=== PATIENT | male | born 1955 | race Caucasian/White ===

== ENCOUNTER 2022-06-09 12:03 | Emergency (ER) | payer MEDICARE, MEDICAID, SELFPAY ==
--- NOTE | 2022-06-09 | ECG_ITS ---
Test Reason : CHEST PAIN Blood Pressure : / mmHG Vent. Rate : 050 BPM Atrial Rate : 050 BPM P-R Int : 176 ms QRS Dur : 094 ms QT Int : 462 ms P-R-T Axes : 069 051 044 degrees QTc Int : 421 ms Sinus bradycardia Otherwise normal ECG No previous ECGs available Referred By: Sabrina Boswell Electronically Signed By:WALLY MCFADDEN
--- NOTE | ~2022-06-09 | XR_ITS ---
EXAMINATION: XR CHEST CLINICAL INFORMATION: Chest pain. COMPARISON: None TECHNIQUE: Frontal view of the chest was obtained. FINDINGS: No significant abnormality is noted involving the heart, lungs, mediastinum, bony thorax or soft tissues. XR/XR chest 1V IMPRESSION: No acute cardiopulmonary process.
[2022-06-09 12:19] VITALS: BMI 25.8
--- NOTE | 2022-06-09 12:19 | ED.CHESTPAIN ---
HPI - Chest Pain General Chief Complaint: Chest Pain Stated Complaint: CHEST PAIN, L. ARM NUMBNESS Time Seen by Provider: 06/09/22 12:15 Source: patient Mode of arrival: EMS Limitations: no limitations History of Present Illness HPI narrative: 66 yo male with hx of COPD, HTN was watching TV around 1030am and developed sternal chest pressure radiating down left arm no associated dyspnea/nausea. It resolved after 5 minutes. He took aspirin with EMS. He notes he feels fine now and is hungry. MD complaint: chest pain Onset (ago): hour(s) (1030am) Timing of current episode: now resolved Prior episodes: No Onset: during rest Pain location: substernal Pain radiation: left arm Severity: moderate Quality: heaviness Relieving factors: nothing Exacerbating factors: nothing Treatment prior to arrival: aspirin Related Data Allergies Allergy/AdvReac Type Severity Reaction Status Date / Time No Known Allergies Allergy Unverified 06/09/22 12:42 [No Known Allergies*] Review of Systems Review of Systems: Constitutional : No Weight loss, No Fever, No Chills ENT/Mouth : No sore throat, No Rhinorrhea Eyes: No Eye Pain, No Swelling Cardiovascular : pos Chest Pain, no SOB, no Dyspnea on Exertion, No Orthopnea, No Edema, No Palpitations Respiratory : No Cough, No Sputum Gastrointestinal : no Nausea, No Vomiting, No Diarrhea, No abdominal Pain, No Hematochezia, No Melena Genitourinary : No Dysuria, No Urinary Frequency Musculoskeletal : No joint pain, No Myalgias, No Joint Swelling Skin : No Skin Lesions, No rash Neuro : No Weakness, No Numbness, No Dizziness, No Headache Psych : No Anxiety/Panic, No Depression Heme/Lymph: No Bruising, No Lymphadenopathy Endocrine : No Polyuria, No Polydipsia All other systems reviewed and are negative [facility] Past Medical History Attestation statement: The following information was validated with the patient. Medical History COPD (chronic obstructive pulmonary disease) HTN (hypertension) Social History Social History (Updated 06/09/22 @ 12:40 by Sabrina Boswell DO) Patient Tobacco Use Status: Current everyday Tobacco user Advance Directives: No Advance Directives Information Provided: No Physical Exam Vital Signs: Vital Signs: Last Vital Signs Temp 97.7 F 06/09/22 12:39 Pulse 61 06/09/22 14:38 Resp 12 06/09/22 14:38 BP 113/70 06/09/22 14:38 Pulse Ox 96 06/09/22 14:38 O2 Del Method 06/09/22 14:38 BMI result Body Mass Index 23.6 Appearance: Alert. Oriented X3. No acute distress. Eyes: Pupils equal, round and reactive to light. ENT: Pharynx normal. Neck: Normal inspection. Neck supple. CVS: Normal heart rate and rhythm. Pulses normal. Respiratory: No respiratory distress. Breath sounds normal. Abdomen: Soft and nontender. Skin: Skin warm and dry. Normal skin color. Normal skin turgor. Extremities: No lower extremity edema. No calf ttp Neuro: Oriented X 3. No motor deficit. No sensory deficit. Course Course Course Narrative: no return of pain while in ED repeat trop negative VS stable can be DC with outpatient follow up MDM - Chest Pain MDM Narrative Medical decision making narrative: 66 yo male with hx of COPD and HTN was watching TV when he developed chest heaviness he had no associated symptoms it resolved after 5 minutes. He feels fine now and is asking for food. At this time will obtain labs, EKG troponin x 2. He has no signs of DVT, hypoxia, he had no pleuritic component or dyspnea to suggest PE. Dispo per results and findings. Lab Data Result diagrams: 06/09/22 13:07 06/09/22 13:07 Labs: Lab Results 06/09/22 06/09/22 06/09/22 Range/Units 13:07 13:07 13:07 WBC 6.2 (4.8-10.8) X10*3/uL RBC 4.51 L (4.60-5.80) X10*6/uL Hgb 13.8 L (14.0-18.0) g/dl Hct 40.8 L (42.0-52.0) % MCV 90.5 (80.0-98.0) fL MCH 30.6 (27.0-33.0) pg MCHC 33.8 (31.0-36.0) g/dl RDW 13.8 (11.0-16.0) % Plt Count 223 (160-400) X10*3/uL MPV 8.2 L (9.4-12.4) fL Immature Gran % (Auto) 0.2 (0.0-0.4) % Neut % (Auto) 55.9 (45-73) % Lymph % (Auto) 27.9 (20-40) % [place] % (Auto) 9.4 (2-11) % Eos % (Auto) 6.0 H (0-4) % Baso % (Auto) 0.6 (0-2) % Lymph # (Auto) 1.7 (1.2-4.9) X10*3/uL [place] # (Auto) 0.6 (0.1-1.2) X10*3/uL Eos # (Auto) 0.4 (0.0-0.4) X10*3/uL Baso # (Auto) 0.0 (0.0-0.2) X10*3/uL Abs Immat Gran (auto) 0.01 (0.00-0.03) X10*3/uL Absolute Neuts (auto) 3.4 (2.0-8.3) x10*3/uL Absolute Nucleated RBC 0.000 (0.0-0.012) X10*3/uL Nucleated RBC % (auto) 0.0 (0.0-0.2) /100WBC PT 12.7 (10.0-13.1) SEC INR 1.1 (0.9-1.1) Sodium 140 (135-145) mmol/L Potassium 4.3 (3.3-5.1) mmol/L Chloride 104 (96-108) mmol/L Carbon Dioxide 27 (22-29) mmol/L Anion Gap 13 (12-20) BUN 23 H (9-16) mg/dL Creatinine 0.89 (0.5-1.4) mg/dL Estim Creat Clear Calc 81.6 Estimated GFR > 60 Random Glucose 89 (60-115) mg/dL Calcium 8.9 (8.4-10.2) mg/dL Magnesium 2.3 (1.6-2.6) mg/dL Total Bilirubin 0.4 (0.0-1.0) mg/dL Direct Bilirubin 0.2 (0.0-0.5) mg/dL AST 19 (5-37) U/L ALT 14 (0-40) U/L Alkaline Phosphatase 77 (39-117) U/L Troponin I High Sens (<3.5-35.0) ng/L Total Protein 7.5 (6.5-8.0) g/dL Albumin 3.9 (3.5-5.0) g/dL Lipase 20 (8-78) U/L COVID-19 ([place]) (Negative) COVID-19 Clin Com 06/09/22 06/09/22 Range/Units 13:07 13:07 WBC (4.8-10.8) X10*3/uL RBC (4.60-5.80) X10*6/uL Hgb (14.0-18.0) g/dl Hct (42.0-52.0) % MCV (80.0-98.0) fL MCH (27.0-33.0) pg MCHC (31.0-36.0) g/dl RDW (11.0-16.0) % Plt Count (160-400) X10*3/uL MPV (9.4-12.4) fL Immature Gran % (Auto) (0.0-0.4) % Neut % (Auto) (45-73) % Lymph % (Auto) (20-40) % [place] % (Auto) (2-11) % Eos % (Auto) (0-4) % Baso % (Auto) (0-2) % Lymph # (Auto) (1.2-4.9) X10*3/uL [place] # (Auto) (0.1-1.2) X10*3/uL Eos # (Auto) (0.0-0.4) X10*3/uL Baso # (Auto) (0.0-0.2) X10*3/uL Abs Immat Gran (auto) (0.00-0.03) X10*3/uL Absolute Neuts (auto) (2.0-8.3) x10*3/uL Absolute Nucleated RBC (0.0-0.012) X10*3/uL Nucleated RBC % (auto) (0.0-0.2) /100WBC PT (10.0-13.1) SEC INR (0.9-1.1) Sodium (135-145) mmol/L Potassium (3.3-5.1) mmol/L Chloride (96-108) mmol/L Carbon Dioxide (22-29) mmol/L Anion Gap (12-20) BUN (9-16) mg/dL Creatinine (0.5-1.4) mg/dL Estim Creat Clear Calc Estimated GFR Random Glucose (60-115) mg/dL Calcium (8.4-10.2) mg/dL Magnesium (1.6-2.6) mg/dL Total Bilirubin (0.0-1.0) mg/dL Direct Bilirubin (0.0-0.5) mg/dL AST (5-37) U/L ALT (0-40) U/L Alkaline Phosphatase (39-117) U/L Troponin I High Sens < 3.5 (<3.5-35.0) ng/L Total Protein (6.5-8.0) g/dL Albumin (3.5-5.0) g/dL Lipase (8-78) U/L COVID-19 (AL) Negative (Negative) COVID-19 Clin Com See Note ECG Data ECG #1: Attestation: I personally reviewed and interpreted this ECG as follows: ECG interpretation date: 06/09/22 ECG interpretation time: 12:29 Interpretation: Rate: 50 Rhythm: sinus bradycardia [place]: normal Normal P waves. Normal PURVI. Normal QRS complex. ST T wave : normal no JONATAN qtc: normal prior studies: no acute ischemia The study has been interpreted contemporaneously by me. . Scores Heart Score History: -0- slightly suspicious ECG: -0- normal Age: -2- > or = 65 Risk factory: -1- 1 or 2 risk factors Troponin: -0- < or = normal limit Score: 3 Risk: 1.7% Discharge Plan Discharge Clinical Impression: Chest pain Patient Disposition: Home, Self-Care Instructions: Chest Pain (ED) Additional Instructions: return to ED for any worsening symptoms or concerns please follow up with your primary care providers you will need an outpatient stress test take a baby aspirin daily Referrals: Neftaly Gutierres MD [Primary Care Provider] - 06/11/22
[2022-06-09 12:28] VITALS: BP 118/68; PULSE 53; RESP 12; TEMP 36.5; O2SAT 96
[2022-06-09 12:39] VITALS: BP 107/88; BP 115/62; PULSE 62; PULSE 75; RESP 14; TEMP 36.5; O2SAT 99; BMI 23.6
[2022-06-09 12:53] VITALS: PULSE 73
[2022-06-09 13:15] LABS: MANUAL DIFF FLAG NO
[2022-06-09 13:17] LABS: Basophils Percent Auto 0.6 % (0-2); Eosinophils Absolute Auto 0.4 X10*3/uL (0.0-0.4); Hematocrit 40.8 % (42.0-52.0); Hemoglobin 13.8 g/dl (14.0-18.0); Imm Gran Abs Auto 0.01 X10*3/uL (0.00-0.03); Imm Gran Pct Auto 0.2 % (0.0-0.4); Lymphocytes Absolute Auto 1.7 X10*3/uL (1.2-4.9); Lymphocytes Percent Auto 27.9 % (20-40); Mean Corpuscular HGB Conc 33.8 g/dl (31.0-36.0); Mean Corpuscular Hemoglobin 30.6 pg (27.0-33.0); Mean Corpuscular Volume 90.5 fL (80.0-98.0); Mean Platelet Volume 8.2 fL (9.4-12.4); Monocytes Absolute Auto 0.6 X10*3/uL (0.1-1.2); Monocytes Percent Auto 9.4 % (2-11); Neutrophils Absolute Auto 3.4 x10*3/uL (2.0-8.3); Neutrophils Percent Auto 55.9 % (45-73); Platelet Count 223 X10*3/uL (160-400); Red Blood Count 4.51 X10*6/uL (4.60-5.80); Red Cell Distribution Width 13.8 % (11.0-16.0); White Blood Count 6.2 X10*3/uL (4.8-10.8)
[2022-06-09 13:23] LABS: INTERNATIONAL NORM RATIO 1.1 (0.9-1.1); Prothrombin Time 12.7 SEC (10.0-13.1)
[2022-06-09 13:32] LABS: COVID-19 Test Negative (Negative); IDNOW Serial# 16C4AD1C
[2022-06-09 13:33] LABS: Alanine Aminotransferase 14 U/L (0-40); Albumin Level 3.9 g/dL (3.5-5.0); Alkaline Phosphatase 77 U/L (39-117); Anion Gap 13 (12-20); Aspartate Amino Transferase 19 U/L (5-37); Bilirubin Direct 0.2 mg/dL (0.0-0.5); Bilirubin Total 0.4 mg/dL (0.0-1.0); Blood Urea Nitrogen 23 mg/dL (9-16); Calcium 8.9 mg/dL (8.4-10.2); Carbon Dioxide 27 mmol/L (22-29); Chloride 104 mmol/L (96-108); Creatinine Clr Calc Pharmacy 81.6; Estimated Glomerular Filt Rate > 60; Glucose Random 89 mg/dL (60-115); Lipase 20 U/L (8-78); Magnesium 2.3 mg/dL (1.6-2.6); Potassium 4.3 mmol/L (3.3-5.1); Sodium 140 mmol/L (135-145); Total Protein 7.5 g/dL (6.5-8.0)
[2022-06-09 13:40] LABS: Troponin-I High Sensitivity < 3.5 ng/L (<3.5-35.0)
[2022-06-09 14:38] VITALS: BP 113/70; PULSE 61; RESP 12; O2SAT 96
--- NOTE | 2022-06-09 14:38 | PC.NURSE ---
pt continues to deny cp, sob, pt in nad, well appearing. awaiting second troponin. nsr on monitor.
[2022-06-09 16:00] LABS: Troponin-I High Sensitivity < 3.5 ng/L (<3.5-35.0)
== END 2022-06-09 16:49 | disposition home or self-care (01) ==
PROVIDERS: Emergency Provider Emergency Medicine; PCP Internal Medicine
DX: R07.89 Other chest pain (principal); R20.0 Anesthesia of skin; F17.200 Nicotine dependence, unspecified, uncomplicated; Z71.6 Tobacco abuse counseling; Z20.822 Contact with and (suspected) exposure to COVID-19; Z79.899 Other long term (current) drug therapy
CPT/HCPCS: 36415; 71045; 80048; 80076; 83690; 83735; 84484; 85025; 85610; 87635; 93005; 99284

== ENCOUNTER 2022-12-21 22:31 | Emergency (ER) | payer MEDICARE, MEDICAID, SELFPAY ==
--- NOTE | 2022-12-21 | ECG_ITS ---
Test Reason : CHEST PAIN Blood Pressure : / mmHG Vent. Rate : 062 BPM Atrial Rate : 062 BPM P-R Int : 168 ms QRS Dur : 092 ms QT Int : 424 ms P-R-T Axes : 063 022 032 degrees QTc Int : 430 ms Normal sinus rhythm Normal ECG When compared with ECG of 09-JUN-2022 12:11, No significant change was found Referred By: Generic ED Physician Electronically Signed By:Lucas Amaya
--- NOTE | ~2022-12-21 | XR_ITS ---
EXAMINATION: XR CHEST CLINICAL INFORMATION: Chest pain COMPARISON: Chest x-ray 06/09/2022 TECHNIQUE: 2 views of the chest were obtained. FINDINGS: No significant abnormality is noted involving the heart, lungs, mediastinum, bony thorax or soft tissues. XR/XR chest 2V IMPRESSION: Unremarkable examination.
[2022-12-21 22:36] VITALS: BP 104/73; BP 130/70; PULSE 67; PULSE 68; RESP 14; TEMP 37; O2SAT 95; O2SAT 97; BMI 25.8
--- NOTE | 2022-12-21 22:55 | ED_ITS ---
HPI - Chest Pain General Chief Complaint: Chest Pain Stated Complaint: chest pain Time Seen by Provider: 12/21/22 22:42 Source: patient, RN notes reviewed and old records reviewed Mode of arrival: ambulatory Limitations: no limitations History of Present Illness HPI narrative: The a 67-year-old male past medical history significant for autism spectrum disorder, diabetes, tobacco dependence bipolar disorder presents for evaluation of chest pain. Patient reports about an hour prior to arrival he was playing solitaire any had a sudden onset of chest pain. He states that chest pain was ?intense, 8/10. ? It did not radiate. He states that was in the center of his chest The pain lasted approximately 15 minutes before completely resolving. Currently the patient has no complaints. He states he had no shortness of breath, palpitations, cough when lightheadedness during his chest pain. He denies any known history of cardiac disease Denies any leg swelling or recent travel Patient received aspirin 324 mg prior to arrival Related Data Allergies Allergy/AdvReac Type Severity Reaction Status Date / Time No Known Allergies Allergy Unverified 06/09/22 12:42 [No Known Allergies*] Review of Systems Constitutional: Constitutional: Reports as per HPI, Denies chills, Denies fatigue, Denies fever(s) and Denies headache(s) ENT: Denies headache(s) Cardiovascular: Cardiovascular: Reports chest pain, Reports chest pain at rest (That has since resolved) and Denies dyspnea Respiratory: Respiratory: Denies cough and Denies dyspnea Gastrointestinal: Gastrointestinal: Denies abdominal pain, Denies constipation and Denies vomiting Genitourinary: Genitourinary: Denies difficulty urinating and Denies dysuria Neurologic: Denies headache(s) and Denies focal weakness Endocrine: Endocrine: Denies fatigue [facility] Past Medical History Medical History COPD (chronic obstructive pulmonary disease) HTN (hypertension) Social History Social History Alcohol intake: never Patient Tobacco Use Status: Current everyday Tobacco user Smoked in Last 30 Days: Yes Use of substances other than those prescribed or required for medical reasons: No Advance Directives: No Physical Exam Vital Signs: Vital Signs: Last Vital Signs Temp 98.6 F 12/21/22 22:36 Pulse 52 12/22/22 00:16 Resp 15 12/22/22 00:16 BP 129/72 12/22/22 00:16 Pulse Ox 96 12/22/22 00:16 O2 Del Method 12/22/22 00:16 BMI result Body Mass Index 25.8 Const: General: healthy appearing, comfortable, no acute distress, alert and awake Nutritional Appearance: well nourished Orientation/consciousness: patient oriented x3 HEENT: Head: Yes normocephalic and Yes atraumatic Throat: Yes posterior oropharynx normal Eyes: Eyelids: Yes eyelids normal Conjunctivae: conjunctivae normal Sclerae: sclerae normal Corneas: corneas normal Pupils: Equal, round and reactive pupils present EOM: EOMs intact bilaterally Neck: Neck: Yes full ROM Resp: Effort & Inspection: normal respiratory effort, able to speak in complete sentences, no audible wheezes and not labored Auscultation: clear to auscultation bilaterally Cardio: Rate: regular rate Rhythm: regular rhythm GI: Inspection: No distended Palpation (GI): Soft to palpation, not firm, nontender, no guarding and not rigid Auscultation: normoactive bowel sounds Skin: General skin exam: no rashes or lesions noted and elasticity normal Neuro: General: patient oriented x3 Cranial nerves: Yes CN's II-XII intact bilaterally, Yes Equal, round and reactive pupils present and Yes Bilaterally intact EOM present Cognition (Neuro): normal cognition Course Reevaluation(s) Reevaluation #1: Patient's initial labs unremarkable, he remains chest pain-free, repeat troponin pending Time: 02:02 Medical Decision Making Medical Decision Making [facility] Narrative: 67-year-old male presents for evaluation of chest. His chest pain lasted approximately 15 minutes episode while he was at rest. His pain is currently 0/10. Patient was given aspirin 324 \mg prior to arrival. He denies any known history of cardiac disease or family history of cardiac disease. The patient's risk factors include a a tobacco dependence and diabetes. No risk factors for DVT. He will get labs, EKG is nonischemic. Chest x-ray pending. Differential Diagnosis Chest pain Atypical chest pain Pleurisy Costochondritis Chest wall pain GERD PE less likely Lab Data [facility] Lab Attestation statement: I reviewed the patient's lab results. 12/21/22 22:54 12/21/22 22:54 Labs: Lab Results 12/21/22 12/21/22 12/21/22 Range/Units 22:54 22:54 22:54 WBC 6.5 (4.8-10.8) X10*3/uL RBC 4.47 L (4.60-5.80) X10*6/uL Hgb 13.5 L (14.0-18.0) g/dl Hct 40.3 L (42.0-52.0) % MCV 90.2 (80.0-98.0) fL MCH 30.2 (27.0-33.0) pg MCHC 33.5 (31.0-36.0) g/dl RDW 14.0 (11.0-16.0) % Plt Count 224 (160-400) X10*3/uL MPV 8.4 L (9.4-12.4) fL Immature Gran % (Auto) 0.2 (0.0-0.4) % Neut % (Auto) 47.1 (45-73) % Lymph % (Auto) 35.0 (20-40) % [place] % (Auto) 9.8 (2-11) % Eos % (Auto) 7.0 H (0-4) % Baso % (Auto) 0.9 (0-2) % Lymph # (Auto) 2.3 (1.2-4.9) X10*3/uL [place] # (Auto) 0.6 (0.1-1.2) X10*3/uL Eos # (Auto) 0.5 H (0.0-0.4) X10*3/uL Baso # (Auto) 0.1 (0.0-0.2) X10*3/uL Abs Immat Gran (auto) 0.01 (0.00-0.03) X10*3/uL Absolute Neuts (auto) 3.1 (2.0-8.3) x10*3/uL Absolute Nucleated RBC 0.000 (0.0-0.012) X10*3/uL Nucleated RBC % (auto) 0.0 (0.0-0.2) /100WBC PT 11.9 (10.0-13.1) SEC INR 1.0 (0.9-1.1) APTT 26.7 (26.0-36.4) SEC Sodium 142 (135-145) mmol/L Potassium 4.1 (3.3-5.1) mmol/L Chloride 109 H (96-108) mmol/L Carbon Dioxide 25 (22-29) mmol/L Anion Gap 12 (12-20) BUN 27 H (9-16) mg/dL Creatinine 0.85 (0.5-1.4) mg/dL Estim Creat Clear Calc 81.5 Estimated GFR > 60 Random Glucose 87 (60-115) mg/dL Calcium 8.5 (8.4-10.2) mg/dL Phosphorus 2.8 (2.7-4.5) mg/dL Magnesium 2.4 (1.6-2.6) mg/dL Total Bilirubin 0.4 (0.0-1.0) mg/dL AST 23 (5-37) U/L ALT 20 (0-40) U/L Alkaline Phosphatase 69 (39-117) U/L Troponin I High Sens (<3.5-35.0) ng/L B-Natriuretic Peptide (<100) pg/mL Total Protein 7.1 (6.5-8.0) g/dL Albumin 3.8 (3.5-5.0) g/dL Lipase 20 (8-78) U/L 12/21/22 12/21/22 12/22/22 Range/Units 22:54 22:54 01:46 WBC (4.8-10.8) X10*3/uL RBC (4.60-5.80) X10*6/uL Hgb (14.0-18.0) g/dl Hct (42.0-52.0) % MCV (80.0-98.0) fL MCH (27.0-33.0) pg MCHC (31.0-36.0) g/dl RDW (11.0-16.0) % Plt Count (160-400) X10*3/uL MPV (9.4-12.4) fL Immature Gran % (Auto) (0.0-0.4) % Neut % (Auto) (45-73) % Lymph % (Auto) (20-40) % [place] % (Auto) (2-11) % Eos % (Auto) (0-4) % Baso % (Auto) (0-2) % Lymph # (Auto) (1.2-4.9) X10*3/uL [place] # (Auto) (0.1-1.2) X10*3/uL Eos # (Auto) (0.0-0.4) X10*3/uL Baso # (Auto) (0.0-0.2) X10*3/uL Abs Immat Gran (auto) (0.00-0.03) X10*3/uL Absolute Neuts (auto) (2.0-8.3) x10*3/uL Absolute Nucleated RBC (0.0-0.012) X10*3/uL Nucleated RBC % (auto) (0.0-0.2) /100WBC PT (10.0-13.1) SEC INR (0.9-1.1) APTT (26.0-36.4) SEC Sodium (135-145) mmol/L Potassium (3.3-5.1) mmol/L Chloride (96-108) mmol/L Carbon Dioxide (22-29) mmol/L Anion Gap (12-20) BUN (9-16) mg/dL Creatinine (0.5-1.4) mg/dL Estim Creat Clear Calc Estimated GFR Random Glucose (60-115) mg/dL Calcium (8.4-10.2) mg/dL Phosphorus (2.7-4.5) mg/dL Magnesium (1.6-2.6) mg/dL Total Bilirubin (0.0-1.0) mg/dL AST (5-37) U/L ALT (0-40) U/L Alkaline Phosphatase (39-117) U/L Troponin I High Sens < 3.5 < 3.5 (<3.5-35.0) ng/L B-Natriuretic Peptide 16 (<100) pg/mL Total Protein (6.5-8.0) g/dL Albumin (3.5-5.0) g/dL Lipase (8-78) U/L Independent Interpretation I performed an independent interpretation of an: EKG (Sinus rhythm with a rate of 62 beats per minute. No ST segment changes. No ectopy or arrhythmia) Radiology Impression Discussion of test interpretation with radiology: I have reviewed the radiologist's reading. Radiologist Impression: No acute pathology Discharge Plan Discharge Clinical Impression: Chest pain Patient Disposition: Home, Self-Care Instructions: Chest Pain (ED) Additional Instructions: Your workup in the emergency department was reassuring. This includes your blood work, EKG and chest x-ray Use ibuprofen or Tylenol for any further discomfort Follow-up with your primary doctor
[2022-12-21 23:09] LABS: MANUAL DIFF FLAG NO
[2022-12-21 23:16] LABS: Basophils Absolute Auto 0.1 X10*3/uL (0.0-0.2); Basophils Percent Auto 0.9 % (0-2); Eosinophils Absolute Auto 0.5 X10*3/uL (0.0-0.4); Hematocrit 40.3 % (42.0-52.0); Hemoglobin 13.5 g/dl (14.0-18.0); Imm Gran Abs Auto 0.01 X10*3/uL (0.00-0.03); Imm Gran Pct Auto 0.2 % (0.0-0.4); Lymphocytes Absolute Auto 2.3 X10*3/uL (1.2-4.9); Mean Corpuscular HGB Conc 33.5 g/dl (31.0-36.0); Mean Corpuscular Hemoglobin 30.2 pg (27.0-33.0); Mean Corpuscular Volume 90.2 fL (80.0-98.0); Mean Platelet Volume 8.4 fL (9.4-12.4); Monocytes Absolute Auto 0.6 X10*3/uL (0.1-1.2); Monocytes Percent Auto 9.8 % (2-11); Neutrophils Absolute Auto 3.1 x10*3/uL (2.0-8.3); Neutrophils Percent Auto 47.1 % (45-73); Platelet Count 224 X10*3/uL (160-400); Red Blood Count 4.47 X10*6/uL (4.60-5.80); White Blood Count 6.5 X10*3/uL (4.8-10.8)
[2022-12-21 23:25] LABS: Prothrombin Time 11.9 SEC (10.0-13.1)
[2022-12-21 23:28] LABS: Partial Thromboplastin Time 26.7 SEC (26.0-36.4)
[2022-12-21 23:38] LABS: Alanine Aminotransferase 20 U/L (0-40); Albumin Level 3.8 g/dL (3.5-5.0); Alkaline Phosphatase 69 U/L (39-117); Anion Gap 12 (12-20); Aspartate Amino Transferase 23 U/L (5-37); Bilirubin Total 0.4 mg/dL (0.0-1.0); Blood Urea Nitrogen 27 mg/dL (9-16); Calcium 8.5 mg/dL (8.4-10.2); Carbon Dioxide 25 mmol/L (22-29); Chloride 109 mmol/L (96-108); Creatinine Clr Calc Pharmacy 81.5; Estimated Glomerular Filt Rate > 60; Glucose Random 87 mg/dL (60-115); Lipase 20 U/L (8-78); Magnesium 2.4 mg/dL (1.6-2.6); Phosphorus 2.8 mg/dL (2.7-4.5); Potassium 4.1 mmol/L (3.3-5.1); Sodium 142 mmol/L (135-145); Total Protein 7.1 g/dL (6.5-8.0)
[2022-12-21 23:44] LABS: Troponin-I High Sensitivity < 3.5 ng/L (<3.5-35.0)
[2022-12-21 23:56] LABS: B Type Natriuretic Peptide 16 pg/mL (<100)
--- NOTE | 2022-12-22 | PC.NURSE ---
Pt A&Ox4, denies any pain. Reports he was sitting when intense CP started lasting about 15 minutes in duration, now resolved. Reports it was substernal and it felt tight. Facility gave 324 mg of aspirin. Pt denies any CP, palpitations or SOB. Pt placed on bedside monitor and EKG obtained and reviewed by provider. IV line placed and blood work collected and sent to lab.
[2022-12-22 00:16] VITALS: BP 129/72; PULSE 52; RESP 15; O2SAT 96
[2022-12-22 02:12] LABS: Troponin-I High Sensitivity < 3.5 ng/L (<3.5-35.0)
[2022-12-22 03:16] VITALS: BP 132/66; PULSE 53; RESP 16; O2SAT 96
--- NOTE | 2022-12-22 04:23 | MHC.EDTECH ---
Shaila called at [phone] for a bls transfer back to facility,ETA next available.RN aware
--- NOTE | 2022-12-22 04:24 | MHC.EDTECH ---
Nelly called at 0423 for an update and dispatched stated within the hour.RN aware
== END 2022-12-22 06:56 | disposition home or self-care (01) ==
PROVIDERS: Physician Assistant; Emergency Provider Internal Medicine
DX: R07.9 Chest pain, unspecified (principal); I10 Essential (primary) hypertension; F17.200 Nicotine dependence, unspecified, uncomplicated
CPT/HCPCS: 36415; 71046; 80053; 83690; 83735; 83880; 84100; 84484; 85025; 85610; 85730; 93005; 99285

== ENCOUNTER 2023-01-17 06:21 | Outpatient (REF) | payer MEDICARE, MEDICAID, SELFPAY ==
--- NOTE | ~2023-01-17 | XR_ITS ---
EXAMINATION: XR SHOULDER, LEFT CLINICAL INFORMATION: Pain. COMPARISON: None available. TECHNIQUE: Three views of the left shoulder. FINDINGS: No acute fractures or subluxation. Mild degenerative osteoarthritis of the glenohumeral and acromioclavicular joints. No abnormal soft tissue calcifications. The included portions of the left-sided ribs and left lung are within normal limits. XR/XR shoulder LT min 2V IMPRESSION: 1. No acute fractures or subluxation. 2. Mild degenerative osteoarthritis.
== END 2023-01-17 06:22 | disposition home or self-care (01) ==
LOC: HO.HOSX 06:21
PROVIDERS: Visit Provider Physician Assistant
DX: M75.82 Other shoulder lesions, left shoulder (principal); M77.12 Lateral epicondylitis, left elbow
CPT/HCPCS: 73030; 99202

== ENCOUNTER 2023-05-01 09:19 | Outpatient (AMB) | payer MEDICARE, MEDICAID, SELFPAY ==
[2023-05-01 09:26] VITALS: BP 112/64; PULSE 83; BMI 27.1
--- NOTE | 2023-05-01 09:26 | A.OFFVIS_ITS ---
Intake Vital Signs 05/01/23 09:26 Height 5 ft 8 in Weight 178 lb 2.136 oz BMI 27.1 BP 112/64 Blood Pressure Location Lt brachial Position Sitting Pulse 83 Pulse Source Pulse Oximeter Intake Visit Reasons: [employer]/Angina/Dr. Callahan Intake Note: New patient visit for evaluation of angina. [employer] Required: No Accompanied by: Self / Same As Patient Allergies No Known Allergies [No Known Allergies*] Allergy (Verified 05/01/23 09:28) Medication List - Last Reconciled 05/01/23 by Lucas Amaya MD acetaminophen 325 mg PO QID PRN aripiprazole 10 mg PO DAILY aspirin 81 mg PO DAILY fluoxetine 20 mg PO DAILY loperamide (Anti-Diarrheal (loperamide)) 2 mg PO Q6H PRN melatonin 5 mg PO BEDTIME nitroglycerin 0.4 mg sublingual Q5M PRN polyethylene glycol 3350 4 grams PO DAILY simvastatin 10 mg PO BEDTIME trihexyphenidyl 2 mg PO BID HPI HPI Comments History of Present Illness Details [age] gentleman with bipolar disorder and autism who is presenting for assessment of chest discomfort. He has been experiencing chest tightness for long time. Off and on he gets chest discomfort at rest and with activities. He is describing a tightness in his chest. He is a smoker and smokes approximately half pack per day. He is saying he has known history of COPD. He has hyperlipidemia and pre diabetes. He is taking simvastatin 10 mg daily. ECG recently done was normal. He is saying he can exercise on treadmill. He did not have any stress testing in the past in our system. [facility] Medical History (Updated 05/01/23 @ 09:47 by Lucas Amaya MD) Borderline diabetes COPD (chronic obstructive pulmonary disease) HTN (hypertension) Surgical History (Updated 05/01/23 @ 09:31 by ALEXIS Man) No pertinent past surgical history Family History (Updated 05/01/23 @ 09:32 by ALEXIS Man) Mother Glaucoma Father Alzheimer's dementia Maternal Grandfather Heart disease Social History (Updated 05/01/23 @ 09:31 by ALEXIS Man) Alcohol intake: never Patient Tobacco Use Status: Current everyday Tobacco user Cigarette Packs Per Day: 0.5 Cigarettes Per Day: 10 Years Smoked: 50 +/- Current occupational status: unemployed Current occupation: left handed Review of Systems Const Denies chills, Denies daytime sleepiness, Denies fatigue, Denies fever(s), Denies frequent falls, Denies night sweats, Denies snoring, Denies weakness, Denies weight gain and Denies weight loss Eyes Denies loss of vision ENT Denies dizziness and Denies hearing loss Card Denies chest pain, Denies chest pain with activity, Denies syncope, Denies rapid heart rate, Denies edema, Denies claudication, Denies leg edema, Denies lightheadedness, Denies palpitations, Denies dyspnea, Denies dyspnea on exertion and Denies orthopnea Resp Denies cough, Denies excessive phlegm production, Denies dyspnea, Denies dyspnea on exertion, Denies snoring and Denies wheezing GI Denies abdominal pain, Denies hematochezia, Denies change in bowel habits, Denies change in stool character, Denies heartburn, Denies nausea and Denies vomiting Denies hematuria, Denies dysuria and Denies urinary frequency Musc Denies arthralgias, Denies muscle weakness, Denies numbness and Denies tingling Skin/Breast Denies nail changes and Denies rash Neuro Denies Abnormal speech present, Denies dizziness, Denies syncope, Denies frequent falls, Denies loss of vision, Denies memory loss, Denies numbness, Denies tingling and Denies weakness Psych Denies depression and Denies memory loss Endo Denies fatigue and Denies palpitations Aller/Immun Denies wheezing Physical Exam Vital Signs: Last Vital Signs Pulse 83 05/01/23 09:26 BP 112/64 05/01/23 09:26 BMI result Body Mass Index 27.1 GENERAL APPEARANCE: in no acute distress, pleasant. NECK: no carotid bruit, no jugular venous distention. SKIN: no suspicious lesions, warm and dry. HEART: no murmurs, regular rate and rhythm. LUNGS: Fine end inspiratory crackles at bases. ABDOMEN: soft, nontender. EXTREMITIES: no edema. PERIPHERAL PULSES: equal. NEUROLOGIC: No gross deficits, AAO X 3 Neuro Speech: No Abnormal speech present Assessment & Plan Assessment & Plan (1) Hyperlipidemia: Code(s): E78.5 - Hyperlipidemia, unspecified (2) Chest pain: Code(s): R07.9 - Chest pain, unspecified Plan [age] year gentleman who is here for assessment of chest discomfort. Chest discomfort some features consistent with angina but also at times happens at rest and has been ongoing for long time. He also is a smoker and has COPD which can give chest discomfort too. In any case given risk factors for coronary artery disease, we have decided to an exercise tolerance test. His baseline EKG is normal and we can do ETT to start with. He should have a fasting lipid panel done. Add metoprolol 25 mg twice a day after the stress test. He has fine end inspiratory crackles at his bases. This sometime is a sign of interstitial lung disease. Consider referring to pulmonology. Thank you for allowing me to participate in the care of your patient. Please feel free to contact me if you have any questions. Coding Level of Care Code New Pt Level 4 (52590) Diagnoses Hyperlipidemia E78.5 Chest pain R07.9
== END 2023-05-01 09:47 | disposition home or self-care (01) ==
PROVIDERS: Visit Provider Internal Medicine Cardiovascular Disease
DX: E78.5 Hyperlipidemia, unspecified (principal); R07.9 Chest pain, unspecified
CPT/HCPCS: 99204

== ENCOUNTER → 2023-05-01 09:19 | Outpatient (BNVA) | payer MEDICARE, MEDICAID, SELFPAY | PROVIDERS: Visit Provider Internal Medicine Cardiovascular Disease | DX: E78.5 Hyperlipidemia, unspecified (principal); R07.9 Chest pain, unspecified | CPT/HCPCS: 99202 ==

== ENCOUNTER → 2023-05-26 08:22 | Outpatient (REF) | payer MEDICARE, MEDICAID, SELFPAY ==
--- NOTE | 2023-05-26 08:29 | CA_ITS ---
Acquisition Time: 2023-05-26 08:51:36 Total Exercise Time: 00:03:14 Test Indications: CHEST PAIN Medications: Protocol: ALEX Max HR: 112 BPM 73% of Pred: 153 BPM Max BP: 144/078 mmHG Max Work Load: 4.6 METS Exercise stress test exercise 3 min 14 sec of Alex protocol [id number]% MPHR, with moderate SOB, with request to stop due to fatigue and breathing, no chest discomfort, with isolated PACs, without EKG changes at achievied workload. Breathing returned to baseline at rest. Test reviewed with Dr. Somers. Referred By: Lucas Amaya Overread By: MANUEL SOMERS
== END ==
LOC: HO.CARD 08:22
PROVIDERS: Visit Provider Internal Medicine Cardiovascular Disease
DX: R07.9 Chest pain, unspecified (principal)
CPT/HCPCS: 93017

== ENCOUNTER → 2023-05-26 08:29 | Outpatient (BNV) | payer MEDICARE, MEDICAID, SELFPAY | PROVIDERS: Visit Provider Internal Medicine | DX: R07.9 Chest pain, unspecified (principal); R06.02 Shortness of breath | CPT/HCPCS: 93016; 93018 ==

== ENCOUNTER → 2023-06-23 07:56 | Outpatient (REF) | payer MEDICARE, MEDICAID, SELFPAY ==
--- NOTE | ~2023-06-23 | NM_ITS ---
Lexiscan Myocardial perfusion study Indication: Chest discomfort, assess for coronary disease and ischemia Technique: The patient was brought in for a Lexiscan perfusion study on 06/23/2023 and was injected 0.4 mg of Lexiscan intravenously. Within a minute of this injection 30 mCi of sestamibi was given intravenously. Images were obtained using the SPECT gamma camera interlaced with the gating device. Images were obtained in supine position. Resting perfusion study was performed on 06/24/2023. Patient was administered 30 mCi of sestamibi intravenously at rest. Images were then obtained in supine position. Images were processed with the software and compared side to side in short axis, horizontal long axis and vertical long axis views. Findings: Raw acquisition reviewed. Arms by the patient's side. The stress perfusion study showed no significant perfusion abnormality. Both uncorrected as well as CT attenuation corrected images were reviewed. The gated study shows low normal LV systolic function with calculated LVEF of 52%. LV cavity is normal in size. The gated study shows normal wall thickening and contraction of segments. Resting study shows no significant perfusion abnormality. Gating at rest reveals normal wall motion with ejection fraction at 50%. The findings are consistent with no clear reversible or fixed perfusion defects. NM/NM gabriel perf SPECT rest & str Impression: 1. Myocardial perfusion imaging study shows normal myocardial perfusion. 2. Gated LVEF is 52% during stress and 50% during rest. Visually, appears to be higher. Correlate with echocardiogram. 3. Transient ischemic dilatation not present. EKG component of the test reported separately.
--- NOTE | 2023-06-23 08:00 | CA_ITS ---
Acquisition Time: 2023-06-23 08:03:45 Total Exercise Time: 00:02:00 Test Indications: CHEST PAIN Medications: SEE H Protocol: LEXISCAN Max HR: 115 BPM 75% of Pred: 152 BPM Max BP: 106/058 mmHG Max Work Load: 1.6 METS Pharmacological stress test with lexiscan injection while walking slowly on the treadmill, without anginal symptoms, without arrhythmias, with normotensive response to injection, with nondiagnositic EKGs. Aminophylline 75mg IVP given to reverse Lexiscan. Nuclear images pending. Test reviewed with Dr. Amaya. Referred By: Lucas Amaya Overread By: MANEUL NIELSON
== END ==
LOC: HO.CARD 07:56
PROVIDERS: Visit Provider Internal Medicine Cardiovascular Disease
DX: R94.39 Abnormal result of other cardiovascular function study (principal)
CPT/HCPCS: 78452; 93017; A9500; J0280; J2785

== ENCOUNTER → 2023-06-23 08:00 | Outpatient (BNV) | payer MEDICARE, MEDICAID, SELFPAY | PROVIDERS: Visit Provider Internal Medicine | DX: R07.9 Chest pain, unspecified (principal) | CPT/HCPCS: 78452; 93016; 93018 ==

== ENCOUNTER → 2023-09-10 09:25 | Outpatient (BNVA) | payer MEDICARE, MEDICAID, SELFPAY | PROVIDERS: Visit Provider Internal Medicine Cardiovascular Disease | DX: R94.39 Abnormal result of other cardiovascular function study (principal); R06.09 Other forms of dyspnea | CPT/HCPCS: 99212 ==

== ENCOUNTER 2023-09-10 09:27 | Outpatient (AMB) | payer MEDICARE, MEDICAID, SELFPAY ==
--- NOTE | 2023-09-10 09:40 | MHC.OFFVIS ---
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 Accompanied by: Self / Same As Patient Allergies No Known Allergies [No Known Allergies*] Allergy (Verified 09/10/23 09:43) Medication List - Last Reconciled 09/10/23 by Lucas Amaya MD acetaminophen 325 mg PO QID PRN aripiprazole 10 mg PO DAILY aspirin 81 mg PO DAILY fluoxetine 20 mg PO DAILY loperamide (Anti-Diarrheal (loperamide)) 2 mg PO Q6H PRN melatonin 5 mg PO BEDTIME nitroglycerin 0.4 mg sublingual Q5M PRN polyethylene glycol 3350 4 grams PO DAILY simvastatin 10 mg PO BEDTIME trihexyphenidyl 2 mg PO BID HPI HPI Comments History of Present Illness Details 68-year-old gentleman with bipolar disorder and autism who is presenting for assessment of chest discomfort. He has been experiencing chest tightness for long time. Off and on he gets chest discomfort at rest and with activities. He is describing a tightness in his chest. He is a smoker and smokes approximately half pack per day. He is saying he has known history of COPD. He has hyperlipidemia and pre diabetes. He is taking simvastatin 10 mg daily. ECG recently done was normal. He is saying he can exercise on treadmill. He did not have any stress testing in the past in our system. 09/10/2023: He returns for follow-up. He was referred for lipid panel and an exercise stress test on last visit. He did not do the lipid panel. He went for exercise stress test where he was able to exercise for 4 minutes and stopped because of dyspnea and fatigue. He did not getting chest discomfort. He was changed to Lexiscan which did not show any perfusion defect. He returns and is complaining of dyspnea on exertion. He is saying that he is still getting some off and on chest tightness which is random. He is asking about smoking cessation and potential options. He has bipolar disorder and is managed by psychiatrist. [facility] Medical History (Updated 09/10/23 @ 11:59 by Lucas Amaya MD) Borderline diabetes HTN (hypertension) COPD (chronic obstructive pulmonary disease) Surgical History No pertinent past surgical history Family History Mother Glaucoma Father Alzheimer's dementia Maternal Grandfather Heart disease Social History Alcohol intake: never Patient Tobacco Use Status: Current everyday Tobacco user Cigarette Packs Per Day: 0.5 Cigarettes Per Day: 10 Years Smoked: 50 +/- Current occupational status: unemployed Current occupation: left handed Review of Systems Const Reports chills, Reports fatigue, Reports fever(s), Reports frequent falls, Reports weakness, Reports weight gain and Reports weight loss ENT Reports dizziness Card Reports chest pain, Reports leg edema, Reports lightheadedness, Reports palpitations, Reports dyspnea and Reports dyspnea on exertion Resp Reports cough, Reports dyspnea and Reports dyspnea on exertion GI Reports hematochezia Musc Reports abnormal gait, Reports muscle weakness, Reports numbness, Reports radiating pain into limb and Reports tingling Neuro Reports abnormal gait, Reports dizziness, Reports frequent falls, Reports numbness, Reports tingling and Reports weakness Endo Reports fatigue and Reports palpitations Physical Exam Vital Signs: Last Vital Signs Pulse 53 09/10/23 09:42 BP 140/50 H 09/10/23 09:42 BMI result Body Mass Index 26.5 GENERAL APPEARANCE: in no acute distress, pleasant. NECK: no carotid bruit, no jugular venous distention. SKIN: no suspicious lesions, warm and dry. HEART: no murmurs, regular rate and rhythm. LUNGS: Fine end inspiratory crackles at bases. ABDOMEN: soft, nontender. EXTREMITIES: no edema. PERIPHERAL PULSES: equal. NEUROLOGIC: No gross deficits, AAO X 3 Assessment & Plan Assessment & Plan (1) Equivocal stress test: Code(s): R94.39 - Abnormal result of other cardiovascular function study (2) Dyspnea on exertion: Code(s): R06.09 - Other forms of dyspnea Plan Pleasant 88-year-old gentleman who is here for follow-up. He underwent exercise stress test where he developed dyspnea and fatigue and stopping 4 minutes. He was changed Lexiscan which was normal. I have explained to him that 10-15% time we miss coronary disease on nuclear perfusion imaging because of balanced ischemia. He has has been a smoker since age 15. I have advised him to do a coronary CTA to make sure days no significant coronary disease. We will arrange this for him. He should get a fasting lipid panel. He may benefit from Chantix but I am not sure whether he can take it with his bipolar disorder and psychiatric illness. He will discuss this with his psychiatrist. Thank you for allowing me to participate in the care of your patient. Please feel free to contact me if you have any questions. Orders: Orders CT Cardiac Coronary Angio Today R94.39 - Abnormal result of other cardiovascular function study Coding Level of Care Code Est Pt Level 4 (61499) Diagnoses Equivocal stress test R94.39 Dyspnea on exertion R06.09
[2023-09-10 09:42] VITALS: BP 140/50; PULSE 53; BMI 26.5
== END 2023-09-10 10:24 | disposition home or self-care (01) ==
PROVIDERS: Visit Provider Internal Medicine Cardiovascular Disease
DX: R94.39 Abnormal result of other cardiovascular function study (principal); R06.09 Other forms of dyspnea
CPT/HCPCS: 99214

== ENCOUNTER 2024-01-05 12:37 | Outpatient (AMB) | payer MEDICARE, MEDICAID, SELFPAY ==
[2024-01-05 12:40] VITALS: BP 110/54; PULSE 44; BMI 26.1
--- NOTE | 2024-01-05 12:40 | MHC.OFFVIS ---
Intake Vital Signs 01/05/24 12:40 Height 5 ft 8 in Weight 171 lb 8.314 oz BMI 26.1 BP 110/54 L Blood Pressure Location Lt brachial Position Sitting Pulse 44 L Intake Visit Reasons: 3 mth f/up cta Intake Note: pt states that he its doing fine. 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 Accompanied by: Self / Same As Patient Allergies No Known Allergies [No Known Allergies*] Allergy (Verified 09/10/23 09:43) Medication List - Last Reconciled 01/05/24 by Lucas Amaya MD acetaminophen 325 mg PO QID PRN aripiprazole 10 mg PO DAILY aspirin 81 mg PO DAILY fluoxetine 20 mg PO DAILY loperamide (Anti-Diarrheal (loperamide)) 2 mg PO Q6H PRN melatonin 5 mg PO BEDTIME metoprolol tartrate 25 mg PO BID nitroglycerin 0.4 mg sublingual Q5M PRN polyethylene glycol 3350 4 grams PO DAILY simvastatin 10 mg PO BEDTIME trihexyphenidyl 2 mg PO BID HPI HPI Comments History of Present Illness Details 68-year-old gentleman with bipolar disorder and autism who is presenting for assessment of chest discomfort. He has been experiencing chest tightness for long time. Off and on he gets chest discomfort at rest and with activities. He is describing a tightness in his chest. He is a smoker and smokes approximately half pack per day. He is saying he has known history of COPD. He has hyperlipidemia and pre diabetes. He is taking simvastatin 10 mg daily. ECG recently done was normal. He is saying he can exercise on treadmill. He did not have any stress testing in the past in our system. 09/10/2023: He returns for follow-up. He was referred for lipid panel and an exercise stress test on last visit. He did not do the lipid panel. He went for exercise stress test where he was able to exercise for 4 minutes and stopped because of dyspnea and fatigue. He did not getting chest discomfort. He was changed to Lexiscan which did not show any perfusion defect. He returns and is complaining of dyspnea on exertion. He is saying that he is still getting some off and on chest tightness which is random. He is asking about smoking cessation and potential options. He has bipolar disorder and is managed by psychiatrist. 01/05/24: He returns for follow-up. He was referred for coronary CTA where 50% lad and 50% RCA stenosis was noted. CTA FFR was performed which was normal. He returns for follow-up and has no symptoms. His heart rate is little slow on follow-up at 44 beats per minute. EKGs not showing any heart block or any other concerning features. He is taking metoprolol 25 mg twice a day. Blood pressure is well controlled. [facility] Medical History (Updated 01/05/24 @ 13:04 by Lucas Amaya MD) Borderline diabetes HTN (hypertension) COPD (chronic obstructive pulmonary disease) Surgical History No pertinent past surgical history Family History Mother Glaucoma Father Alzheimer's dementia Maternal Grandfather Heart disease Social History Alcohol intake: never Patient Tobacco Use Status: Current everyday Tobacco user Cigarette Packs Per Day: 0.5 Cigarettes Per Day: 10 Years Smoked: 50 +/- Current occupational status: unemployed Current occupation: left handed Review of Systems Const Denies chills, Denies fatigue, Denies fever(s), Denies frequent falls, Denies weakness, Denies weight gain and Denies weight loss ENT Denies dizziness Card Denies chest pain, Denies leg edema, Denies lightheadedness, Denies palpitations, Denies dyspnea and Denies dyspnea on exertion Resp Denies cough, Denies dyspnea and Denies dyspnea on exertion GI Denies hematochezia Musc Denies abnormal gait, Denies muscle weakness, Denies numbness, Denies radiating pain into limb and Denies tingling Neuro Denies abnormal gait, Denies dizziness, Denies frequent falls, Denies numbness, Denies tingling and Denies weakness Endo Denies fatigue and Denies palpitations Physical Exam Vital Signs: Last Vital Signs Pulse 44 L 01/05/24 12:40 BP 110/54 L 01/05/24 12:40 BMI result Body Mass Index 26.1 GENERAL APPEARANCE: in no acute distress, pleasant. NECK: no carotid bruit, no jugular venous distention. SKIN: no suspicious lesions, warm and dry. HEART: no murmurs, regular rate and rhythm. Bradycardic. LUNGS: Clear to auscultation bilaterally. ABDOMEN: soft, nontender. EXTREMITIES: no edema. PERIPHERAL PULSES: equal. NEUROLOGIC: No gross deficits, AAO X 3 Office Procedures EKG Details: Sinus bradycardia 44 beats per minute, normal axis, otherwise normal EKG, QTC 418 milliseconds. [id number], Complete Assessment & Plan Assessment & Plan (1) Coronary artery disease: Code(s): I25.10 - Atherosclerotic heart disease of [place] coronary artery without angina pectoris (2) Sinus bradycardia: Code(s): R00.1 - Bradycardia, unspecified Plan 80-year-old gentleman who is here for follow-up. He was seen for dyspnea on exertion and underwent stress testing which was equivocal. He was referred for coronary CTA which showed 50% lad and 50% RCA stenosis. CTA FFR was performed which was normal. On follow-up he is denying any significant symptoms. I have explained to him that he has moderate coronary disease and currently we will just observe him. Obviously if he is shortness of breath worsen or if he starts complaining of chest discomfort then he will require diagnostic cardiac catheterization. Forty sinus bradycardia I have advised him to decrease the metoprolol to half tablet twice a day. Thank you for allowing me to participate in the care of your patient. Please feel free to contact me if you have any questions. Medications: New metoprolol tartrate 12.5 mg PO BID Coding Level of Care Code Est Pt Level 4 (90737) Diagnoses Coronary artery disease I25.10 Sinus bradycardia R00.1 CPT Codes EKG - CPT: 80778-[id number], Complete ([id number])
== END 2024-01-05 13:17 | disposition home or self-care (01) ==
PROVIDERS: Visit Provider Internal Medicine Cardiovascular Disease
DX: I25.10 Atherosclerotic heart disease of native coronary artery without angina pectoris (principal); R00.1 Bradycardia, unspecified
CPT/HCPCS: 93010; 99214

== ENCOUNTER → 2024-01-05 12:37 | Outpatient (BNVA) | payer MEDICARE, MEDICAID, SELFPAY | PROVIDERS: Visit Provider Internal Medicine Cardiovascular Disease | DX: R00.1 Bradycardia, unspecified (principal); I25.10 Atherosclerotic heart disease of native coronary artery without angina pectoris; I10 Essential (primary) hypertension; J44.9 Chronic obstructive pulmonary disease, unspecified | CPT/HCPCS: 93005; 99212 ==

== ENCOUNTER 2024-03-08 09:41 | Outpatient (AMB) | payer MEDICARE, MEDICAID, SELFPAY ==
[2024-03-08 09:42] VITALS: BP 106/62; PULSE 65; O2SAT 94; BMI 25.2
--- NOTE | 2024-03-08 09:42 | HO.NEPHOV ---
Vital Signs 03/08/24 09:42 Height 5 ft 8 in Weight 166 lb BMI 25.2 BP 106/62 Blood Pressure Location Lt brachial Position Sitting Pulse 65 Pulse Source Pulse Oximeter Pulse Oximetry (%) 94 Oxygen Delivery Method Room Air Intake Visit Reasons: Elevated creatinine/ Confirmed Payment Rep Required: No Accompanied by: Self / Same As Patient Allergies No Known Allergies [No Known Allergies*] Allergy (Verified 03/08/24 09:43) HPI Comments Details: Gerson is a resident of [facility]. He has been referred for elevated serum creatinine. He has no specific complaints today. He has not aware of any renal issues. History of bipolar disorder and he has taken lithium several years ago. Not on lithium anymore. No specific urinary symptoms. No polyuria polydipsia. No edema. [facility] Medical History (Updated 03/08/24 @ 09:47 by David Peña MD) Borderline diabetes HTN (hypertension) COPD (chronic obstructive pulmonary disease) Surgical History No pertinent past surgical history Family History Mother Glaucoma Father Alzheimer's dementia Maternal Grandfather Heart disease Social History Alcohol intake: never Patient Tobacco Use Status: Current everyday Tobacco user Cigarette Packs Per Day: 0.5 Cigarettes Per Day: 10 Years Smoked: 50 +/- Current occupational status: unemployed Current occupation: left handed Review of Systems Const Denies anorexia, Denies fever(s) and Denies weakness Eyes Denies blurry vision Card Denies no additional complaints and Denies dyspnea Resp Reports no additional complaints, Reports cough and Denies dyspnea GI Denies melena and Denies diarrhea Denies hematuria Musc Denies tingling Skin/Breast Denies rash Neuro Denies focal weakness, Denies tingling, Denies tremor(s) and Denies weakness Physical Exam Vital Signs: Last Vital Signs Pulse 65 03/08/24 09:42 BP 106/62 03/08/24 09:42 Pulse Ox 94 03/08/24 09:42 Oxygen Delivery Method Room Air 03/08/24 09:42 BMI result Body Mass Index 25.2 Const General: comfortable Nutritional Appearance: well nourished Orientation/consciousness: patient oriented x3 HEENT Head: No normal to inspection Mouth: moist mucous membranes Neck Neck: Yes supple and Yes no JVD Resp Auscultation: clear to auscultation bilaterally, no rales and rub present Cardio Jugular venous distension: no JVD Palpation: no palpable S3 and no palpable S4 Heart sounds: no rubs GI Palpation (GI): Soft to palpation and nontender Percussion: No Fluid wave present General: Yes no CVA tenderness Back/Spine/Pelvis Back: no CVA tenderness Skin General skin exam: no rashes or lesions noted Neuro General: patient oriented x3 Extrem General: Yes no pedal edema and No clubbing Results Reviewed Results Reviewed: Recent creatinine 0.9. Nephrology Results: No Data to Display Assessment & Plan Assessment & Plan (1) Elevated serum creatinine: Code(s): R79.89 - Other specified abnormal findings of blood chemistry Category: Medical Plan 68-year-old man with a history of bipolar disorder who was on lithium several years ago was found to have slightly elevated serum creatinine. Exact values are not available. I have initiated workup for CKD. In the meantime encouraged him to stand low-sodium diet Increase p.o. fluid intake. Continue overt nephrotoxic agents including NSAIDs. Further workup will be based on the outcome of the baseline investigations. I have reassured him. Orders: Orders UA and rflx microscopic Today R79.89 - Other specified abnormal findings of blood chemistry Basic Metabolic Panel Today R79.89 - Other specified abnormal findings of blood chemistry Total Protein Urine Random Today R79.89 - Other specified abnormal findings of blood chemistry Creatinine Urine Today R79.89 - Other specified abnormal findings of blood chemistry Coding Level of Care Code New Pt Level 4 (15321) Diagnoses Elevated serum creatinine R79.89
== END 2024-03-08 10:00 | disposition home or self-care (01) ==
PROVIDERS: PCP Internal Medicine; Referring Provider Internal Medicine; Visit Provider Internal Medicine Hypertension Specialist
DX: R79.89 Other specified abnormal findings of blood chemistry (principal)
CPT/HCPCS: 99204

== ENCOUNTER → 2024-03-08 09:41 | Outpatient (BNVA) | payer MEDICARE, MEDICAID, SELFPAY | PROVIDERS: PCP Internal Medicine; Referring Provider Internal Medicine; Visit Provider Internal Medicine Hypertension Specialist | DX: R79.89 Other specified abnormal findings of blood chemistry (principal) | CPT/HCPCS: 99202 ==

== ENCOUNTER 2024-08-09 15:16 | Emergency (ER) | payer MEDICARE, MEDICAID, SELFPAY ==
--- NOTE | ~2024-08-09 | XR_ITS ---
EXAMINATION: XR CHEST CLINICAL INFORMATION: Chest pain COMPARISON: 12/21/22 TECHNIQUE: Frontal view of the chest was obtained. FINDINGS: Heart size within normal limits allowing for technique. Previously seen basilar atelectasis has cleared. No infiltrates, CHF, effusions or lung masses. XR/XR chest 1V IMPRESSION: No acute intrathoracic disease. Electronically signed by: Oscar Treviño MD 08/09/2024 06:17 PM EST
[2024-08-09 15:27] VITALS: BP 113/67; BP 127/77; PULSE 60; PULSE 90; RESP 16; TEMP 36.6; O2SAT 95; O2SAT 98; BMI 25.3
--- NOTE | 2024-08-09 15:34 | ECG_ITS ---
Test Reason : CHEST PAIN Blood Pressure : / mmHG Vent. Rate : 057 BPM Atrial Rate : 057 BPM P-R Int : 182 ms QRS Dur : 092 ms QT Int : 442 ms P-R-T Axes : 069 029 039 degrees QTc Int : 430 ms Sinus bradycardia with sinus arrhythmia Otherwise normal ECG When compared with ECG of 21-DEC-2022 22:35, No significant change was found Referred By: Generic ED Physician Electronically Signed By:KAYODE MARQUEZ MD
[2024-08-09 16:04] VITALS: BP 105/64; PULSE 61; RESP 18; O2SAT 95
[2024-08-09 16:24] LABS: MANUAL DIFF FLAG NO
[2024-08-09 16:36] LABS: Basophils Percent Auto 0.7 % (0-2); Eosinophils Absolute Auto 0.3 X10*3/uL (0.0-0.4); Eosinophils Percent Auto 4.8 % (0-4); Hematocrit 40.7 % (42.0-52.0); Hemoglobin 13.8 g/dl (14.0-18.0); Imm Gran Abs Auto 0.02 X10*3/uL (0.00-0.03); Imm Gran Pct Auto 0.3 % (0.0-0.4); Lymphocytes Absolute Auto 1.9 X10*3/uL (1.2-4.9); Lymphocytes Percent Auto 32.8 % (20-40); Mean Corpuscular HGB Conc 33.9 g/dl (31.0-36.0); Mean Corpuscular Volume 88.5 fL (80.0-98.0); Mean Platelet Volume 8.3 fL (9.4-12.4); Monocytes Absolute Auto 0.5 X10*3/uL (0.1-1.2); Neutrophils Absolute Auto 3.1 x10*3/uL (2.0-8.3); Neutrophils Percent Auto 52.4 % (45-73); Platelet Count 209 X10*3/uL (160-400); Red Cell Distribution Width 13.5 % (11.0-16.0); White Blood Count 5.9 X10*3/uL (4.8-10.8)
[2024-08-09 16:48] LABS: Troponin-I High Sensitivity 2.7 ng/L (<3.5-35.0)
[2024-08-09 16:49] LABS: Alanine Aminotransferase 17 U/L (0-40); Albumin Level 3.9 g/dL (3.5-5.0); Alkaline Phosphatase 75 U/L (39-117); Anion Gap 11 (12-20); Aspartate Amino Transferase 32 U/L (5-37); Bilirubin Total 0.4 mg/dL (0.0-1.0); Blood Urea Nitrogen 23 mg/dL (9-16); Calcium 9.5 mg/dL (8.4-10.2); Carbon Dioxide 27 mmol/L (22-29); Chloride 105 mmol/L (96-108); Creatinine Clr Calc Pharmacy 87.3; Estimated Glomerular Filt Rate > 60; Glucose Random 105 mg/dL (60-115); Potassium 3.9 mmol/L (3.3-5.1); Sodium 139 mmol/L (135-145); Total Protein 7.5 g/dL (6.5-8.0)
--- NOTE | 2024-08-09 16:57 | ED_ITS ---
HPI - Chest Pain General Chief Complaint: Chest Pain Stated Complaint: chest tightness, sob Time Seen by Provider: 08/09/24 16:42 Source: patient Limitations: no limitations History of Present Illness ED Provider: Marleny abad PA-C HPI narrative: Patient is a 69 year old male with a PMH of schizoaffective disorder, diabetes, CAD, HLD, COPD, and sinus bradycardia, who presents today with complaints of chest pain. Patient states he was playing wheel of [employer] at his senior living home when the pain started suddenly. He was at rest and states it lasted for roughly 15 minutes. At the time, he also felt some slight shortness of breath and palpitations. He describes the chest pain as a feeling of tightness. Patient states he has been anxious recently and thinks they may have something to do with his pain. He reports it happening in the past and subsiding on its own. The pain had subsided prior to EMS arrival and has not returned. Patient denied headache, recent illness, and recent leg swelling. Patients is somewhat poor historian and has scattered thoughts. Patient also reports smoking tobacco products. Related Data Home Medications ?Medication ?Instructions ?Recorded ?Confirmed aspirin 81 mg tablet,delayed 81 mg PO DAILY 01/17/23 01/05/24 release fluoxetine 20 mg capsule 20 mg PO DAILY 01/17/23 01/05/24 simvastatin 10 mg tablet 10 mg PO BEDTIME 01/17/23 01/05/24 trihexyphenidyl 2 mg tablet 2 mg PO BID 01/17/23 01/05/24 acetaminophen 325 mg capsule 325 mg PO QID PRN 05/01/23 01/05/24 aripiprazole 10 mg tablet 10 mg PO DAILY 05/01/23 01/05/24 loperamide 2 mg capsule 2 mg PO Q6H PRN 05/01/23 01/05/24 (Anti-Diarrheal (loperamide)) melatonin 5 mg capsule 5 mg PO BEDTIME 05/01/23 01/05/24 nitroglycerin 0.4 mg sublingual 0.4 mg sublingual Q5M PRN 05/01/23 01/05/24 tablet polyethylene glycol 3350 4 gram 4 g PO DAILY 05/01/23 01/05/24 oral powder packet Allergies Allergy/AdvReac Type Severity Reaction Status Date / Time No Known Allergies Allergy Verified 11/04/24 15:29 [No Known Allergies*] Review of Systems 2 Review of Systems: Yes all other systems are reviewed and are negative Constitutional: Constitutional: Denies chills, Denies fatigue, Denies fever(s), Denies headache(s), Denies lethargy, Denies weakness and Denies weight gain Eyes: Eyes: Denies change in vision ENT: Denies dizziness, Denies headache(s), Denies post nasal drip and Denies sore throat Cardiovascular: Cardiovascular: Denies Abdominal Distension, Reports acrocyanosis, Reports chest pain, Denies Epigastric Pain, Denies leg edema, Denies radiating jaw, neck or arm pain, Denies palpitations and Reports dyspnea Respiratory: Respiratory: Denies cough, Reports dyspnea and Denies wheezing Gastrointestinal: Gastrointestinal: Denies constipation, Denies diarrhea and Denies nausea Genitourinary: Genitourinary: Denies hematuria, Denies dysuria, Denies urinary frequency and Denies urinary urgency Musculoskeletal: Musculoskeletal: Denies myalgias, Denies arthralgias, Denies numbness, Denies stiffness and Denies tingling Integumentary/Breasts: Skin/Breast: Denies lesions and Denies rash Neurologic: Denies dizziness, Denies headache(s), Denies numbness, Denies tingling and Denies weakness Psychiatric: Psychiatric: Reports anxiety, Denies homicidal ideation and Denies suicidal ideation Endocrine: Endocrine: Denies fatigue and Denies palpitations Allergic/Immunologic: Allergic/Immunologic: Denies wheezing PMFSH Past Medical History Attestation statement: The following information was validated with the patient. Medical History (Updated 08/09/24 @ 18:58 by NORA Figueroa) Borderline diabetes HTN (hypertension) COPD (chronic obstructive pulmonary disease) Surgical History No pertinent past surgical history Family History Family History Mother Glaucoma Father Alzheimer's dementia Maternal Grandfather Heart disease Social History Social History Alcohol intake: never Patient Tobacco Use Status: Current everyday Tobacco user Cigarette Packs Per Day: 0.5 Cigarettes Per Day: 10 Years Smoked: 50 +/- Use of substances other than those prescribed or required for medical reasons: No Advance Directives: Yes Advance Directives Information Provided: Yes Advance Directives on File: No Do you have a plan to hurt others: No Plan Current occupational status: unemployed Current occupation: left handed Physical Exam 2 Vital Signs: Vital Signs: Last Vital Signs Temp 97.4 F 08/09/24 18:21 Pulse 61 08/09/24 18:21 Resp 19 08/09/24 18:21 BP 130/70 08/09/24 18:21 Pulse Ox 95 08/09/24 18:21 O2 Del Method Room Air 08/09/24 18:21 BMI result Body Mass Index 25.3 Const: General: cooperative, healthy appearing, comfortable, no acute distress and well developed Nutritional Appearance: average body habitus O rientation/consciousness: patient oriented x3 HEENT: Head: Yes normal to inspection, Yes normocephalic and Yes atraumatic Eyes: General: appearance normal, both eyes and all related structures V isual Norman: normal visual norman by confrontation Alignment and Position: a lignment normal Periorbital: periorbital findings normal Eyelids: Yes eyelids normal Conjunctivae: conjunctivae normal Sclerae: sclerae normal Corneas: corneas normal Pupils: Equal, round and reactive pupils present EOM: EOMs intact bilaterally Neck: Neck: Yes normal visual inspection, Yes full ROM and Yes no meningeal signs Resp: Effort & Inspection: normal respiratory effort, able to speak in complete sentences, no audible wheezes, no cough, not labored, no nasal flaring, no pursed lip breathing, no respiratory distress and no use of accessory muscles Auscultation: clear to auscultation bilaterally, no rales, no rhonchi and no wheezes Cardio: Jugular venous distension: no JVD Rate: regular rate Rhythm: r egular rhythm Heart sounds: S1 normal heart sound present and S2 normal heart sound present GI: Inspection: Yes normal to inspection and No distended Palpation (GI): S oft to palpation, nontender, not rigid, no hepatomegaly and no splenomegaly Skin: Other: warm and dry, no rash General skin exam: no rashes or lesions noted Neuro: General: patient oriented x3, moves all extremities, no meningeal signs, no focal motor deficits and CN's II-XI intact bilaterally Cranial nerves: Yes CN's II-XII intact bilaterally, Yes Equal, round and reactive pupils present and Yes Bilaterally intact EOM present Cognition (Neuro): normal cognition Extrem: General: Yes full ROM, Yes clubbing, Yes cyanosis and No edema Psych: Other: calm and cooperative Appearance: grossly normal Mental Status: mental status grossly normal Speech and movement: Normal speech and movement present and Clear speech present Affect: normal affect Attitude: cooperative Thought process: N ormal thought process present Thought content: Normal thought content present Insight: Good insight present (Psych) Judgement: Good judgement present (Psych) Medical Decision Making Medical Decision Making MDM Narrative: Patient is a 69 year old male with a PMH of schizoaffective disorder, diabetes CAD, HLD, COPD, and sinus bradycardia, who presents today with complaints of chest pain. Patient states he was playing wheel of [employer] at his senior living home when the pain started suddenly. He was at rest and states it lasted for roughly 15 minutes. At the time, he also felt some slight shortness of breath and palpitations. He describes the chest pain as a feeling of tightness. Patient states he has been anxious recently and thinks they may have something to do with his pain. He reports it happening in the past and subsiding on its own. The pain had subsided prior to EMS arrival and has not returned. Patient denied headache, recent illness, and recent leg swelling. Patients is somewhat poor historian and has scattered thoughts. Patient also reports smoking tobacco products. PMH: HLD, CAD, sinus bradycardia, chest pain, COPD DDx: ACS, anxiety, electrolyte imbalance, COPD exacerbation, PE, anemia, pneumonia Plan: Given that the patient reports recent increase in anxiety and stress, his symptoms could be due to anxiety. Will rule out other causes first. As the chest pain was at rest, was accompanied by palpitations, and he has a history of tobacco use, CP, HLD, and CAD, ACS was considered. This is unlikely, however, as the patients troponin was normal. EKG was also normal, therefore the cause of his symptoms is not ACS. Anemia was considered, however his CBC and CMP were WNL. Electrolyte abnormality was also considered, however his electrolytes were also normal, making this unlikely. Thought about PE, however patient denies recent unilateral leg swelling and cough, and is not found to be hypoxic or tachycardic on exam, therefore ruling this out. COPD exacerbation was also considered, however he was at rest when the episode occurred, did not have significant SOB or wheezing, and symptoms were relieved quickly with time, therefore this is unlikely. Considered pneumonia, however patient denies recent upper respiratory symptoms, is afebrile, and chest pain is not consistent. Per Marleny Abad PA-C ACS was considered, the patient has multiple risk factors for coronary artery disease. His assessment began from triage, screening labs including cardiac enzyme was obtained. For me, the patient did indicate that over the past few days he has had a cough, he does smoke tobacco as well. No objective fevers, his lungs are clear to auscultation, we will add a chest x-ray. There was also some degree of reproducible chest discomfort on exam with palpation of chest wall, however he does not have a mechanism. I agree, I do not think this is PE, given lack of hypoxia, tachycardia, objective signs symptoms for DVT on exam. I reviewed with the student that electrolyte abnormalities do not cause chest pain. I also reviewed that PE does not cause a cough. I have independently reviewed the following tests: Labs: No leukocytosis, not anemic, no electrolyte abnormality, troponin negative EKG: Sinus bradycardia, rate of 57, no ischemic changes no ectopy Chest x-ray: XR/XR chest 1V IMPRESSION: No acute intrathoracic disease. Electronically signed by: Oscar Treviño MD 08/09/2024 06:17 PM [facility] [place] 08/09/24 16:21 08/09/24 16:21 Labs: Lab Results 08/09/24 Range/Units 16:21 WBC 5.9 (4.8-10.8) X10*3/uL RBC 4.60 (4.60-5.80) X10*6/uL Hgb 13.8 L (14.0-18.0) g/dl Hct 40.7 L (42.0-52.0) % MCV 88.5 (80.0-98.0) fL MCH 30.0 (27.0-33.0) pg MCHC 33.9 (31.0-36.0) g/dl RDW 13.5 (11.0-16.0) % Plt Count 209 (160-400) X10*3/uL MPV 8.3 L (9.4-12.4) fL Immature Gran % (Auto) 0.3 (0.0-0.4) % Neut % (Auto) 52.4 (45-73) % Lymph % (Auto) 32.8 (20-40) % [place] % (Auto) 9.0 (2-11) % Eos % (Auto) 4.8 H (0-4) % Baso % (Auto) 0.7 (0-2) % Lymph # (Auto) 1.9 (1.2-4.9) X10*3/uL [place] # (Auto) 0.5 (0.1-1.2) X10*3/uL Eos # (Auto) 0.3 (0.0-0.4) X10*3/uL Baso # (Auto) 0.0 (0.0-0.2) X10*3/uL Abs Immat Gran (auto) 0.02 (0.00-0.03) X10*3/uL Absolute Neuts (auto) 3.1 (2.0-8.3) x10*3/uL Absolute Nucleated RBC 0.000 (0.0-0.012) X10*3/uL Nucleated RBC % (auto) 0.0 (0.0-0.2) /100WBC Sodium 139 (135-145) mmol/L Potassium 3.9 (3.3-5.1) mmol/L Chloride 105 (96-108) mmol/L Carbon Dioxide 27 (22-29) mmol/L Anion Gap 11 L (12-20) BUN 23 H (9-16) mg/dL Creatinine 0.85 (0.5-1.4) mg/dL Estim Creat Clear Calc 87.3 Estimated GFR > 60 Random Glucose 105 (60-115) mg/dL Calcium 9.5 D (8.4-10.2) mg/dL Total Bilirubin 0.4 (0.0-1.0) mg/dL AST 32 (5-37) U/L ALT 17 (0-40) U/L Alkaline Phosphatase 75 (39-117) U/L Troponin I High Sens 2.7 (<3.5-35.0) ng/L Total Protein 7.5 (6.5-8.0) g/dL Albumin 3.9 (3.5-5.0) g/dL Discharge Plan Discharge Clinical Impression: Chest wall pain Patient Disposition: Home, Self-Care Instructions: Chest Wall Pain (ED) Additional Instructions: Your discomfort is most consistent with chest wall pain. You can use [id number] ibuprofen and Tylenol to manage your discomfort. All of your screening labs including a cardiac enzymes were normal. There were no concerning changes on your EKG in the chest x-ray was clear. Follow up with your primary care provider as needed. Prescriptions: No Action simvastatin 10 mg tablet 10 mg PO BEDTIME trihexyphenidyl 2 mg tablet 2 mg PO BID fluoxetine 20 mg capsule 20 mg PO DAILY aspirin 81 mg tablet,delayed release (DR/EC) 81 mg PO DAILY aripiprazole 10 mg tablet 10 mg PO DAILY acetaminophen 325 mg capsule 325 mg PO QID PRN loperamide [Anti-Diarrheal (loperamide)] 2 mg capsule 2 mg PO Q6H PRN melatonin 5 mg capsule 5 mg PO BEDTIME nitroglycerin 0.4 mg tablet, sublingual 0.4 mg sublingual Q5M PRN Rx Instructions: do not exceed 3 doses per episode polyethylene glycol 3350 4 gram powder in packet 4 g PO DAILY Print Language: Romansh
[2024-08-09 18:21] VITALS: BP 130/70; PULSE 61; RESP 19; TEMP 36.3; O2SAT 95
[2024-08-09 19:23] VITALS: BP 133/63; PULSE 8; RESP 18; O2SAT 96
--- NOTE | 2024-08-09 20:02 | PC.NURSE ---
Report to Esthela Martel.
--- NOTE | 2024-08-09 22:46 | PC.NURSE ---
pt has been sitting quietly in hallway waiting for EMS ride home.
[2024-08-09 23:19] VITALS: BP 133/63; PULSE 81; RESP 18; TEMP 36.9; O2SAT 96
== END 2024-08-09 23:20 | disposition home or self-care (01) ==
PROVIDERS: Emergency Provider Emergency Medicine; PCP Nurse Practitioner Adult Health
DX: R07.89 Other chest pain (principal); E11.9 Type 2 diabetes mellitus without complications; E78.5 Hyperlipidemia, unspecified; R06.02 Shortness of breath; R00.2 Palpitations; I10 Essential (primary) hypertension; Z79.899 Other long term (current) drug therapy
CPT/HCPCS: 36415; 71045; 80053; 84484; 85025; 93005; 99283; 99285

== ENCOUNTER → 2024-08-09 15:34 | Outpatient (BNV) | payer MEDICARE, MEDICAID, SELFPAY | PROVIDERS: Emergency Provider Emergency Medicine; PCP Nurse Practitioner Adult Health; Visit Provider Internal Medicine Cardiovascular Disease | DX: R07.9 Chest pain, unspecified (principal); R00.1 Bradycardia, unspecified | CPT/HCPCS: 93010 ==

== ENCOUNTER 2024-09-22 12:46 | Outpatient (AMB) | payer MEDICARE, MEDICAID, SELFPAY ==
[2024-09-22 12:51] VITALS: BP 120/62; PULSE 80; BMI 27.5
--- NOTE | 2024-09-22 12:51 | MHC.OFFVIS ---
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 Accompanied by: Self / Same As Patient Allergies No Known Allergies [No Known Allergies*] Allergy (Verified 08/09/24 15:29) Medication List - Last Reconciled 09/22/24 by Lucas Amaya MD acetaminophen 325 mg PO QID PRN aripiprazole 10 mg PO DAILY aspirin 81 mg PO DAILY fluoxetine 20 mg PO DAILY loperamide (Anti-Diarrheal (loperamide)) 2 mg PO Q6H PRN melatonin 5 mg PO BEDTIME nitroglycerin 0.4 mg sublingual Q5M PRN polyethylene glycol 3350 4 grams PO DAILY simvastatin 10 mg PO BEDTIME trihexyphenidyl 2 mg PO BID HPI Comments Details: 69-year-old gentleman with bipolar disorder and autism who is presenting for assessment of chest discomfort. He has been experiencing chest tightness for long time. Off and on he gets chest discomfort at rest and with activities. He is describing a tightness in his chest. He is a smoker and smokes approximately half pack per day. He is saying he has known history of COPD. He has hyperlipidemia and pre diabetes. He is taking simvastatin 10 mg daily. ECG recently done was normal. He is saying he can exercise on treadmill. He did not have any stress testing in the past in our system. 09/10/2023: He returns for follow-up. He was referred for lipid panel and an exercise stress test on last visit. He did not do the lipid panel. He went for exercise stress test where he was able to exercise for 4 minutes and stopped because of dyspnea and fatigue. He did not getting chest discomfort. He was changed to Lexiscan which did not show any perfusion defect. He returns and is complaining of dyspnea on exertion. He is saying that he is still getting some off and on chest tightness which is random. He is asking about smoking cessation and potential options. He has bipolar disorder and is managed by psychiatrist. 01/05/24: He returns for follow-up. He was referred for coronary CTA where 50% lad and 50% RCA stenosis was noted. CTA FFR was performed which was normal. He returns for follow-up and has no symptoms. His heart rate is little slow on follow-up at 44 beats per minute. EKGs not showing any heart block or any other concerning features. He is taking metoprolol 25 mg twice a day. Blood pressure is well controlled. 09/22/2024: On follow-up today, he is denying chest discomfort. He has some shortness of breath with extreme exercise but otherwise in day-to-day life he does not have any significant shortness of breath. He is taking medications regularly. He unfortunately has started smoking again and is quite upset about it. ON LICENSE OF [facility] Medical History (Updated 09/22/24 @ 13:21 by Lucas Amaya MD) Borderline diabetes HTN (hypertension) COPD (chronic obstructive pulmonary disease) Surgical History No pertinent past surgical history Family History Mother Glaucoma Father Alzheimer's dementia Maternal Grandfather Heart disease Social History Alcohol intake: never Patient Tobacco Use Status: Current everyday Tobacco user Cigarette Packs Per Day: 0.5 Cigarettes Per Day: 10 Years Smoked: 50 +/- Current occupational status: unemployed Current occupation: left handed Review of Systems Const Denies chills, Denies fatigue, Denies fever(s), Denies frequent falls, Denies weakness, Denies weight gain and Denies weight loss ENT Denies dizziness Card Denies chest pain, Denies leg edema, Denies lightheadedness, Denies palpitations, Denies dyspnea and Denies dyspnea on exertion Resp Denies cough, Denies dyspnea and Denies dyspnea on exertion GI Denies hematochezia Musc Denies abnormal gait, Denies muscle weakness, Denies numbness, Denies radiating pain into limb and Denies tingling Neuro Denies abnormal gait, Denies dizziness, Denies frequent falls, Denies numbness, Denies tingling and Denies weakness Endo Denies fatigue and Denies palpitations Physical Exam Vital Signs: Last Vital Signs Pulse 80 09/22/24 12:51 BP 120/62 09/22/24 12:51 BMI result Body Mass Index 27.5 GENERAL APPEARANCE: in no acute distress, pleasant. NECK: no carotid bruit, no jugular venous distention. SKIN: no suspicious lesions, warm and dry. HEART: no murmurs, regular rate and rhythm. LUNGS: Clear to auscultation bilaterally. ABDOMEN: soft, nontender. EXTREMITIES: no edema. PERIPHERAL PULSES: equal. NEUROLOGIC: No gross deficits, AAO X 3 Assessment & Plan Assessment & Plan (1) Encounter for smoking cessation counseling: Code(s): Z71.6 - Tobacco abuse counseling Category: Medical (2) Coronary artery disease: Code(s): I25.10 - Atherosclerotic heart disease of [place] coronary artery without angina pectoris Category: Medical (3) Dyspnea on exertion: Code(s): R06.09 - Other forms of dyspnea Category: Medical Plan 80-year-old gentleman who is here for follow-up. He was seen for dyspnea on exertion and underwent stress testing which was equivocal. He was referred for coronary CTA which showed 50% lad and 50% RCA stenosis. CTA FFR was performed which was normal. On follow-up he is denying any significant symptoms. In his day-to-day life he does not get any significant shortness of breath or chest discomfort. I have explained to him that he has moderate coronary disease and currently we will just observe him. Obviously if he is shortness of breath worsen or if he starts complaining of chest discomfort then he will require diagnostic cardiac catheterization. He previously had sinus bradycardia and it appears he has been off metoprolol at this stage and heart rate is better. He has started smoking. He wishes to get nicotine patches which we will send for him. Thank you for allowing me to participate in the care of your patient. Please feel free to contact me if you have any questions. Medications: New nicotine 1 patch transdermal DAILY 28 ea 3RF Z71.6 - Tobacco abuse counseling Coding Level of Care Code Est Pt Level 4 (46608) Diagnoses Encounter for smoking cessation counseling Z71.6 Coronary artery disease I25.10 Dyspnea on exertion R06.09
--- OUTSIDE RECORDS SUMMARY | 2024-09-22 12:51 | XMS_ITS | Continuity of Care Document ---
Author Organization [facility] Action Agency Address [address] [place] [address] Phone Care Team Providers Care Automobile Rental Clerk Name Role Phone Babak COFFMAN [place] Unavailable Unavailable Allergies, Adverse Reactions, Alerts Substance Reaction Status Criticality No Known allergies Medications Medication Instructions Dosage Effective Dates (start - stop) Status Comments Accu-Chek Active Test Strips take 1 by Oral route every 12 hours - Active Accu-Chek Active Glucose Cont Combo Pack take 1 by Misc.(Non-Drug; Combo Route) route 1 - Active any meter marianne javon do that will be paid for by his insurance hydrochlorothiazide 12.5 mg Cap take 1 capsule (12.5MG) by ORAL route every day - Active Pravachol 20 mg Tab take 1 tablet (20MG) by ORAL route every day - Active glipizide 5 mg Tab take 1 by Oral route 2 times every day 1 - Active Abilify 20 mg Tab take 1 tablet (20MG) by ORAL route every day, by patient report - Active Gervais trihexyphenidyl 2 mg Tab take 1 tablet (2MG) by ORAL route 2 times every day 2 MG - Active aspirin 81 mg Tab take 1 tablet (81MG) by ORAL route every day - Active BuSpar 10 mg Tab take 2 tablet (20MG) by ORAL route 3 times every day - Active Procedures Procedure Date GLYCOSYLATED HEMOGLOBIN TEST OFFICE/OUTPATIENT VISIT, EST FLU VACCINE NO PRESERV 3 & > - Child Sta te Supplied IMMUNIZATION ADMIN OFFICE/OUTPATIENT VISIT, EST OFFICE/OUTPATIENT VISIT, EST FLU VACCINE, AGE 3 OVER (PEDI - [place] p[place]ied) IMMUNIZATION ADMIN PREV VISIT, EST, AGE 40-64 BLOOD OCCULT PEROXIDASE OFFICE/OUTPATIENT VISIT, EST OFFICE/OUTPATIENT VISIT, EST OFFICE/OUTPATIENT VISIT, EST OFFICE/OUTPATIENT VISIT, EST PREV VISIT, EST, AGE 40-64 FLU VACCINE, AGE 3 OVER (PEDI - [place] pplied) IMMUNIZATION ADMIN GLYCOSYLATED HEMOGLOBIN TEST OFFICE/OUTPATIENT VISIT, EST IMMUNIZATION ADMIN OFFICE/OUTPATIENT VISIT, EST PNEUMOCOCCAL VACCINE (Adult) OFFICE/OUTPATIENT VISIT, EST OFFICE/OUTPATIENT VISIT, EST OFFICE/OUTPATIENT VISIT, EST OFFICE/OUTPATIENT VISIT, EST OFFICE/OUTPATIENT VISIT, EST OFFICE/OUTPATIENT VISIT, EST IMMUNIZATION ADMIN FLU VACCINE, AGE 3 OVER (PEDI - [place] p[place]ied) OFFICE/OUTPATIENT VISIT, EST MEDICAL NUTRITION, INDIV, IN MEDICAL NUTRITION, INDIV, IN PREV VISIT, NEW, AGE 40-64 Advance Directives Directive Yes / No Effective Date File Name No Information Encounters Encounter Description Practice Location Reason(s) For Visit Diagnoses Date Provider Providers Copied on Encounter [address], [id number], [place] tel:[phone] [facility] No Information 5 Babak Quezada. [address] [place] [address], [id number] , [place]. tel:[phone], [place], [place], [id number], [place] tel:[phone] [facility] No Information 2 Babak Quezada. [address] [place] [address], [id number] , [place]. tel: [phone] [facility], [address] [place] [address], [id number], [place] tel:[phone] [facility] No Information 2 Victorino Montaño. [address] [place] [address], [address], [place], [address]. tel: [phone] [facility], [address] [place] [address], [id number], tel:[phone] [facility] No Information 2 Babak Quezada. [address] [place] [address], [id number] , [place]. tel: [phone] OFFICE/OUTPA TIENT VISIT, [facility], [address] [place] [address], [id number], [place] tel:[phone] [facility] diabetes (chief complaint) Diabetes Mellitus Type 2, UncomplicatedInfl uenza VaccineHypertensi on, Unspecified 1 Babak Quezada. [address] [place] [address], [id number] , [place]. tel: [phone] Referring Provider: Damien Cook, [address] [place] [address], [id number] . tel:[phone] OFFICE/OUTPA TIENT VISIT, [facility], [address] [place] [address], [id number], [place] tel:[phone] [facility] hypertension (chief complaint) Diabetes Mellitus Type 2, UncomplicatedHype rtension, Unspecified 1 Babak Quezada. [address] [place] [address], [id number] , [place]. tel: [phone] OFFICE/OUTPA TIENT VISIT, [facility], [address] [place] [address], [id number], [place] tel:[phone] [facility] hypertension (chief complaint) Unspecified essential hypertension 201 0 Victorino Montaño. [address] [place] [address], [address]. tel: [phone] PREV VISIT, [facility], AGE 40-64 [facility], [address] [place] [address], [id number], [place] tel:[phone] [facility] physical exam (chief complaint)hyp ertension (chief complaint)dep ression (chief complaint) Unspecified essential hypertensionRouti ne Medical Exam 0 Victorino Montaño. [address] [place] [address], [address]. tel: [phone] OFFICE/OUTPA TIENT VISIT, [facility], [address] [place] [address], [id number], [place] tel:[phone] [facility] Toe infection (chief complaint) CellulitisCelluli tis -201 0 Chastity Moore. [address] [place] [address], [id number] . tel: [phone] OFFICE/OUTPA TIENT VISIT, [facility], [address] [place] [address], [id number], [place] tel:[phone] [facility] hypertension (chief complaint)med ication refill (chief complaint)angela betes (chief complaint) Unspecified essential hypertension Jan-0 201 0 Victorino Trejoa. [address] [place] [address], [address]. tel: [phone] OFFICE/OUTPA TIENT VISIT, [facility], [address] [place] [address], [id number], [place] tel:[phone] [facility] hypertension (chief complaint)med ication refill (chief complaint)angela betes (chief complaint) Unspecified essential hypertensionUnspe cified essential hypertension Dec-2 3-200 9 Victorino Montaño. [address] [place] [address], [address]. tel: [phone] OFFICE/OUTPA TIENT VISIT, [facility], [address] [place] [address], [id number], [place] tel:[phone] [facility] hypertension (chief complaint)med ication refill (chief complaint)angela betes (chief complaint) Unspecified essential hypertensionUnspe cified essential hypertension Jul-0 9200 9 Victorino Trejoa. [address] [place] [address], [address], [address]. tel: [phone] PREV VISIT, [facility], AGE 40-64 [facility], [address] [place] [address], [id number], [place] tel:[phone] [facility] physical exam (chief complaint)med ication refill (chief complaint) No Information Jun-2 9 Victorino Nyla Montaño. [address] [place] [address], [address]. tel: [phone] OFFICE/OUTPA TIENT VISIT, [facility], [address] [place] [address], [id number], [place] tel:[phone] [facility] diabetes (chief complaint)hyp ertension (chief complaint)steven h (chief complaint)kimberly ght loss (chief complaint) Other specified dermatomycoses May-0 3200 9 Victorino Trejoa. [address] [place] [address], [address]. tel: [phone] OFFICE/OUTPA TIENT VISIT, [facility], [address] [place] [address], [id number], [place] tel:[phone] [facility] hypertension (chief complaint)kimberly ght loss (chief complaint)smo leydi (chief complaint) Unspecified essential hypertensionUnspe cified essential hypertension 9 Victorino Trejoa. [address] [place] [address], [address]. tel: [phone] [facility], [address] [place] [address], [id number], [place] tel:[phone] [facility] Loss of weight May-1 8-200 9 Victorino Montaño. [address] [place] [address], [address]. tel:[phone] OFFICE/OUTPA TIENT VISIT, [facility], [address] [place] [address], [id number], [place] tel:[phone] [facility] hypertension (chief complaint)wt loss (chief complaint) Loss of weightLoss of weightUnspecified essential hypertension May-0 1-200 9 Victorino Montaño. [address] [place] [address], [address]. tel:[phone] OFFICE/OUTPA TIENT VISIT, [facility], [address] [place] [address], [id number], [place] tel:[phone] [facility] insomnia (chief complaint)angela rrhea (chief complaint) Insomnia, unspecifiedOther and unspecified noninfectious gastroenteritis and colitis Apr-2 0-200 9 Victorino Montaño. [address] [place] [address], [address]. tel: [phone] OFFICE/OUTPA TIENT VISIT, [facility], [address] [place] [address], [id number], [place] tel:[phone] [facility] weight loss (chief complaint)hyp ertension (chief complaint)tro uble sleeping (chief complaint) Loss of weightLoss of weightUnspecified essential hypertension Apr-0 3-200 9 Victorino Montaño. [address] [place] [address], [address]. tel: [phone] [facility], [address] [place] [address], [id number], [place] tel:[phone] [facility] Loss of weight Mar-0 4-200 9 Victorino Trejoa. [address] [place] [address], [address]. tel: [phone] OFFICE/OUTPA TIENT VISIT, [facility], [address] [place] [address], [id number], tel:[phone] [facility] hypertension (chief complaint)kimberly ght loss (chief complaint) Unspecified essential hypertensionUnspe cified essential hypertensionLoss of weight 9 Victorino Montaño. [address] [place] [address], [address]. tel: [phone] OFFICE/OUTPA TIENT VISIT, [facility], [address] [place] [address], [id number], tel:[phone] [facility] smoking cessation (chief complaint)med ication refill (chief complaint)hyp ertension (chief complaint) Personal history of tobacco usePersonal history of tobacco useUnspecified essential hypertensionDiabe humphrey mellitus without mention of complication, type II or unspecified type, uncontrolledPure hyperglyceridemia 8 Victorino Montaño. [address] [place] [address], [address]. tel: [phone] OFFICE/OUTPA TIENT VISIT, [facility], [address] [place] [address], [id number], [place] tel:[phone] [facility] hypertension (chief complaint)smo leydi cessation (chief complaint) Personal history of tobacco useUnspecified essential hypertensionPerso nal history of tobacco use 8 Victorino Montaño. [address] [place] [address], [address]. tel: [phone] OFFICE/OUTPA TIENT VISIT, [facility], [address] [place] [address], [id number], [place] tel:[phone] [facility] Smoking Cessation (chief complaint)Met er Assistance (chief complaint) Personal history of tobacco use 0 8 Victorino Montaño. [address] [place] [address], [address]. tel: [phone] [facility], [address] [place] [address], [id number], [place] tel:[phone] [facility] Diabetes mellitus without mention of complication, type II or unspecified type, uncontrolled Jun- 8 Niya Terrynea. [address] [place] [address], [address]. tel: [phone] [facility], [address] [place] [address], [id number], tel:[phone] [facility] Dietary surveillance and counseling 8 Niya Terrynea. [address] [place] [address], [address]. tel: [phone] PREV VISIT, NEW, AGE 40-64 [facility], [address] [place] [address], [id number], [place] tel:[phone] [facility] No Information 8 Victorino Montaño. [address] [place] [address], [address], [place], [address]. tel: [phone] [facility], [address] [place] [address], [id number], tel:[phone] [facility] Anxiety state, unspecifiedUnspec ified essential hypertensionSchiz oaffective disorder, unspecified 8 Victorino Montaño. [address] [place] [address], [address], [place], [address]. tel: [phone] Family History Family Member Type Diagnosis Age At Onset Father Problem (finding) coronary arterioscleros is Immunizations Vaccine Date Status Comments flu (split) preservative hayden e, 3 yrs or older administered Source: New Immuniza tion Record flu (split) (3 yrs or older) administered Source: New Immunization Record Flu (split) (3 yrs or older) administered Source: New Immunization Record flu (split) (3 yrs or older) administered Source: Source Unspecified Flu (split) 3 yrs or older administered S ource: New Immunization Record Pneumovax administered Source: Source Unspecified Pneumovax administered Source: Source Unspecified Pneumo (2 yrs or older)(PPV) administered Source: New Immunization Record Pneumovax administered Source: Source Unspecified flu (split) (3 yrs or older) administered Source: Source Unspecified flu (split) (3 yrs or older) administered Source: Source Unspecified Flu (split) (3 yrs or older) administered Source: New Immunization Record Payers Payer name Insurance type Covered democrat ID Endy whatley(s) Medicare MB [id number] Social History Type Description Quantity Date Captured Comments Alcohol Use Details Unknown Caffeine Use Details Unknown Tobacco Use Status No Information Smoking Status No Information Sex Male Chief Complaint And Reason For Visit No Information Reason For Referral Reason For Referral No Information Plan Of Treatment Date Type Action Status Future Order: Lab Order LIPID 1 PROFILE (CHOL,TRIG,HDL,LDL) (971), Ordered on: Ordered Future Order: Lab Order MICROALB UMIN (RANDOM) (1959), Sent on: Sent Future Order: Lab Order PSA, TOT AL AND FREE ([id number]), Ordered on: Ordered Future Order: Lab Order COMPREHE NSIVE METABOLIC PANEL (977), Sent on: Sent Future Order: Lab Order GLYCOHEM OGLOBIN-A1C (1108), Sent on: Sent Future Order: Lab Order LIPID 1 PROFILE (CHOL,TRIG,HDL,LDL) (971), Sent on: Sent Future Order: Lab Order TSH, 3RD GENERATION ([id number]), Sent on: Sent Future Order: Lab Order Rapid HI V ([id number]), Appointment on: Ordered Future Order: Lab Order FOBT Angela gnostic ([id number]), Appointment on: Ordered Future Order: Lab Order Cardiac Risk Profile (902), Appointment on: Ordered Future Order: Lab Order COMPREHE NSIVE METABOLIC PANEL (977), Appointment on: Ordered Future Order: Lab Order Cardiac Risk Profile (902), Appointment on: Ordered Future Order: Lab Order COMPREHE NSIVE METABOLIC PANEL (977), Appointment on: Ordered Future Order: Lab Order MICROALB UMIN (RANDOM) (1657), Appointment on: Ordered Future Order: Lab Order urine im munofixation, Appointment on: Ordered Future Order: Lab Order MICROALB UMIN (RANDOM) (1657), Appointment on: Ordered Future Order: Lab Order HbA1C (8 3036), Appointment on: Ordered Future Order: Lab Order UPEP/SPE P/peripheral blood smear, Appointment on: Ordered Future Order: Lab Order CBC (W D IFF AND PLATELET) (1980), Appointment on: Ordered Future Order: Lab Order SEDRATE (2029), Appointment on: Ordered Future Order: Lab Order HbA1C (8 3036), Appointment on: Ordered Future Order: Lab Order Cardiac Risk Profile (902), Appointment on: Ordered Future Order: Lab Order COMPREHE NSIVE METABOLIC PANEL (977), Appointment on: Ordered History Of Present Illness Encounter Date Complaint History Of Prese nt Illness No Information Functional Status Date Functional Assessmen t No Information Instructions Date Instruction Additional Infor mation Renew medications Continue current medication Patient understood and made info rmed decision Take new medication as prescribe d Continue current medication Reviewed medications Continue current medication Continue current medication Continue current medication Take new medication as prescribe d Continue current medication Continue current medication Continue current medication Change medication Continue current medication Continue current medication Take new medication as prescribe d Assessments Type Assessment Date No Information Patient Care Teams Name Effective Dates (start - stop) Status Members No Information
== END 2024-09-22 13:23 | disposition home or self-care (01) ==
PROVIDERS: PCP Nurse Practitioner Adult Health; Visit Provider Internal Medicine Cardiovascular Disease
DX: Z71.6 Tobacco abuse counseling (principal); I25.10 Atherosclerotic heart disease of native coronary artery without angina pectoris; R06.09 Other forms of dyspnea
CPT/HCPCS: 99214

== ENCOUNTER → 2024-09-22 12:46 | Outpatient (BNVA) | payer MEDICARE, MEDICAID, SELFPAY | PROVIDERS: PCP Nurse Practitioner Adult Health; Visit Provider Internal Medicine Cardiovascular Disease | DX: I25.10 Atherosclerotic heart disease of native coronary artery without angina pectoris (principal); R06.09 Other forms of dyspnea; F17.210 Nicotine dependence, cigarettes, uncomplicated; Z71.6 Tobacco abuse counseling | CPT/HCPCS: 99212 ==

== ENCOUNTER 2025-01-17 11:43 | Outpatient (AMB) | payer MEDICARE, MEDICAID, SELFPAY ==
[2025-01-17 11:46] VITALS: BP 114/62; PULSE 66; BMI 26.6
--- NOTE | 2025-01-17 11:46 | A.OFFVIS_ITS ---
Vital Signs 01/17/25 11:46 Height 5 ft 8 in Weight 175 lb 0.752 oz BMI 26.6 BP 114/62 Blood Pressure Location Lt brachial Position Sitting Pulse 66 Pulse Source Pulse Oximeter Intake Visit Reasons: 4 mth f/up Stunt Double Required: No Carousel Operator: Carousel Operator Present Allergies No Known Allergies [No Known Allergies*] Allergy (Verified 01/17/25 11:47) Medication List - Last Reconciled 01/17/25 by Lucas Amaya MD acetaminophen 325 mg PO QID PRN aripiprazole 10 mg PO DAILY aspirin 81 mg PO DAILY cholecalciferol (vitamin D3) 50 mcg PO DAILY fluoxetine 20 mg PO DAILY gabapentin 100 mg PO DAILY loperamide (Anti-Diarrheal (loperamide)) 2 mg PO Q6H PRN melatonin 5 mg PO BEDTIME nicotine 1 patch transdermal DAILY nitroglycerin 0.4 mg sublingual Q5M PRN polyethylene glycol 3350 4 grams PO DAILY simvastatin 10 mg PO BEDTIME trihexyphenidyl 2 mg PO BID HPI Comments Details: 69-year-old gentleman with bipolar disorder and autism who is presenting for assessment of chest discomfort. He has been experiencing chest tightness for long time. Off and on he gets chest discomfort at rest and with activities. He is describing a tightness in his chest. He is a smoker and smokes approximately half pack per day. He is saying he has known history of COPD. He has hyperlipidemia and pre diabetes. He is taking simvastatin 10 mg daily. ECG recently done was normal. He is saying he can exercise on treadmill. He did not have any stress testing in the past in our system. 09/10/2023: He returns for follow-up. He was referred for lipid panel and an exercise stress test on last visit. He did not do the lipid panel. He went for exercise stress test where he was able to exercise for 4 minutes and stopped because of dyspnea and fatigue. He did not getting chest discomfort. He was changed to Lexiscan which did not show any perfusion defect. He returns and is complaining of dyspnea on exertion. He is saying that he is still getting some off and on chest tightness which is random. He is asking about smoking cessation and potential options. He has bipolar disorder and is managed by psychiatrist. 01/05/24: He returns for follow-up. He was referred for coronary CTA where 50% lad and 50% RCA stenosis was noted. CTA FFR was performed which was normal. He returns for follow-up and has no symptoms. His heart rate is little slow on follow-up at 44 beats per minute. EKGs not showing any heart block or any other concerning features. He is taking metoprolol 25 mg twice a day. Blood pressure is well controlled. 09/22/2024: On follow-up today, he is denying chest discomfort. He has some shortness of breath with extreme exercise but otherwise in day-to-day life he does not have any significant shortness of breath. He is taking medications reg ularly. He unfortunately has started smoking again and is quite upset about it. 01/17/25: Here for follow-up. Continues to smoke 10 cigarettes per day. He has some shortness of breath with activities but saying that overall clinically stable and not bothersome. No chest discomfort. Blood pressure control is good. He is taking simvastatin 10 mg daily. He has not had any issues with other statins before. [facility] Medical History (Updated 09/22/24 @ 13:21 by Lucas Amaya MD) Borderline diabetes HTN (hypertension) COPD (chronic obstructive pulmonary disease) Surgical History No pertinent past surgical history Family History Mother Glaucoma Father Alzheimer's dementia Maternal Grandfather Heart disease Social History Alcohol intake: never Patient Tobacco Use Status: Current everyday Tobacco user Cigarette Packs Per Day: 0.5 Cigarettes Per Day: 10 Years Smoked: 50 +/- Current occupational status: unemployed Current occupation: left handed Review of Systems ENT Reports dizziness Card Denies chest pain, Denies chest pain at rest, Denies chest pain with activity, Denies rapid heart rate, Denies pedal edema, Denies edema, Denies leg edema, Denies lightheadedness, Denies palpitations, Denies dyspnea, Denies dyspnea on exertion and Denies orthopnea Resp Denies cough, Denies dyspnea and Denies dyspnea on exertion GI Denies hematochezia and Denies change in stool character Musc Denies abnormal gait, Reports limited range of motion, Reports muscle cramps, Denies muscle weakness, Denies numbness, Denies radiating pain into limb, Denies stiffness and Denies tingling Neuro Denies abnormal gait, Reports dizziness, Denies numbness and Denies tingling Endo Denies palpitations Physical Exam Vital Signs: Last Vital Signs Pulse 66 01/17/25 11:46 BP 114/62 01/17/25 11:46 BMI result Body Mass Index 26.6 GENERAL APPEARANCE: in no acute distress, pleasant. NECK: no carotid bruit, no jugular venous distention. SKIN: no suspicious lesions, warm and dry. HEART: no murmurs, regular rate and rhythm. LUNGS: Clear to auscultation bilaterally. ABDOMEN: soft, nontender. EXTREMITIES: no edema. PERIPHERAL PULSES: equal. NEUROLOGIC: No gross deficits, AAO X 3 Assessment & Plan Assessment & Plan (1) Encounter for smoking cessation counseling: Code(s): Z71.6 - Tobacco abuse counseling Category: Medical (2) Coronary artery disease: Code(s): I25.10 - Atherosclerotic heart disease of wiyot coronary artery without angina pectoris Category: Medical (3) Dyspnea on exertion: Code(s): R06.09 - Other forms of dyspnea Category: Medical Plan 69-year-old gentleman who is here for follow-up. He was seen for dyspnea on exertion and underwent stress testing which was equivocal. He was referred for coronary CTA which showed 50% lad and 50% RCA stenosis. CTA FFR was performed which was normal. On follow-up he appears to be stable. He continues to smoke 10 cigarettes per day. We discussed about smoking cessation again. He is asking for more patches which we will send for him. Blood pressure is well controlled. He will report to us if his breathing worsened or if he developed any chest discomfort. Otherwise he will see us back in 4 months. Thank you for allowing me to participate in the care of your patient. Please feel free to contact me if you have any questions. Medications: New atorvastatin 40 mg PO BEDTIME 90 tabs 3RF Refilled nicotine 1 patch transdermal DAILY 28 ea 3RF Z71.6 - Tobacco abuse counseling Coding Level of Care Code Est Pt Level 4 (34833) Diagnoses Encounter for smoking cessation counseling Z71.6 Coronary artery disease I25.10 Dyspnea on exertion R06.09
--- OUTSIDE RECORDS SUMMARY | 2025-01-17 13:45 | XMS_ITS | Clinical Summary ---
Author Organization [address] [facility] Address [address] [place] [address] Phone Care Team Providers Care Repairer Typewriter Name Role Phone Neftaly Gutierres MD Primary Care Provider +1- [phone] Encounters Date Type Department Care Team Description 11/30/2024 Lab Requisition [facility] - Main Lab [address] [place] [address] Neftaly Gutierres MD Type 2 diabetes mellitus without complications (CMS/HCC V24, CMS/HCC V28); Polyneuropathy, unspecified; Chronic obstructive pulmonary disease, unspecified (CMS/HCC V24, CMS/HCC V28) from Last 3 Months Social History Tobacco Use Types Packs/Day Years Used Date Smoking Tobacco: Never Assessed Sex and Gender Information Value Date Recorded Sex Assigned at Not on file Legal Sex Male 10:29 AM EST Gender Identity Not on file Sexual Orientation Not on file Plan of Treatment Health Maintenance Due Date Last Done Comments Diabetes: Annual Foot Exam 1965 Diabetes: Annual Retina Eye Exam 1965 DTaP,Tdap,and Td Vaccines (1 - Tdap) 1974 Pneumococcal Vaccine: 50+ Years (1 of 2 - PCV) 1974 Zoster Vaccines (1 of 2) 2005 RSV Immunization Adult Patients (1 - Risk 60-74 years 1-dose series) 2015 Abdominal Aortic Aneurysm (AAA) Screen 09/03/2022 Colorectal Cancer Screening: Colonoscopy 09/03/2022 Depression Screening 09/03/2022 Falls Risk Assessment 09/03/2022 Hepatitis C Screening 09/03/2022 Medicare Annual Wellness Visit 09/03/2022 Social Influencers of Health Screening 09/03/2022 COVID-19 Vaccine ( season) 2024 Diabetes: Annual Urine Albumin-Creatinine Ratio (uACR) 09/14/2024 Diabetes: Blood Sugar Control Test (HGBA1C) 05/30/2025 11/30/2024, 10/05/2024, 09/28/2024, Additional history exists Influenza Vaccine (Season Ended) 2025 Diabetes: Annual GFR (Glomerular Filtration Rate) 11/30/2025 11/30/2024, 09/28/2024 Hypertension/CHF/CAD Annual BMP Blood Test 11/30/2025 11/30/2024, 09/28/2024 Cholesterol Screening (Lipid Panel) 09/28/2029 09/28/2024 HIB Vaccines Aged Out No longer eligi ble based on patient's age to complete this topic HPV Vaccines Aged Out No longer eligi ble based on patient's age to complete this topic Hepatitis A Vaccines Aged Out No long er eligible based on patient's age to complete this topic Hepatitis B Vaccines Aged Out No long er eligible based on patient's age to complete this topic IPV Vaccines Aged Out No longer eligi ble based on patient's age to complete this topic MMR Vaccines Aged Out No longer eligi ble based on patient's age to complete this topic Meningococcal ACWY Vaccine Aged Out N o longer eligible based on patient's age to complete this topic Meningococcal B Vaccine Aged Out No l onger eligible based on patient's age to complete this topic RSV Immunization Patients Under 20 months Aged Out No longer eligible based on patient's age to complete this topic Varicella Vaccines Aged Out No longer eligible based on patient's age to complete this topic Procedures Procedure Name Priority Date/Time Associated Diagnosis Comments HEMOGLOBIN A1C Routine 11/30/2024 8:36 AM EST Type 2 diabetes mellitus without complications (CMS/HCC) Polyneuropathy, unspecified Chronic obstructive pulmonary disease, unspecified (CMS/HCC) BASIC METABOLIC PANEL Routine 11/30/2024 8:36 AM EST Type 2 diabetes mellitus without complications (CMS/HCC) Polyneuropathy, unspecified Chronic obstructive pulmonary disease, unspecified (CMS/HCC) COMPLETE BLOOD COUNT Routine 11/30/2024 8:36 AM EST Type 2 diabetes mellitus without complications (CMS/HCC) Polyneuropathy, unspecified Chronic obstructive pulmonary disease, unspecified (CMS/HCC) LIPID PANEL WITH REFLEX TO DIRECT LDL Routine 09/28/2024 5:46 AM EST Type 2 diabetes mellitus with unspecified complications (CMS/HCC) Hyperlipidemia, unspecified Essential (primary) hypertension from Last 3 Months or Most Recently Relevant to Health Maintenance Results * (ABNORMAL) Complete blood count (11/30/2024 8:36 AM EST) WBC 5.6 4.8 - 10.8 K/mcL LAB HEMETOLOGY METHOD 11/30/2024 12:42 PM [facility] RBC 4.80 4.50 - 5.50 M/mcL LAB HEMETOLOGY METHOD 11/30/2024 12:42 PM [facility] Hemoglobin 14.5 13.5 - 17.5 g/dL LAB HEMETOLOGY METHOD 11/30/2024 12:42 PM [facility] Hematocrit 45.7 42.0 - 54.0 % LAB HEMETOLOGY METHOD 11/30/2024 12:42 PM [facility] MCV 95.0 79.0 - 98.0 FL LAB HEMETOLOGY METHOD 11/30/2024 12:42 PM [facility] MCH 30.1 27.0 - 32.0 pcg LAB HEMETOLOGY METHOD 11/30/2024 12:42 PM [facility] MCHC 31.7(L) 32.0 - 37.0 g/dL LAB HEMETOLOGY METHOD 11/30/2024 12:42 PM [facility] RDW 14.2 11.0 - 15.0 % LAB HEMETOLOGY METHOD 11/30/2024 12:42 PM [facility] Platelets 248 130 - 400 K/mcL LAB HEMETOLOGY METHOD 11/30/2024 12:42 PM [facility] MPV 8.9 7.0 - 11.0 FL LAB HEMETOLOGY METHOD 11/30/2024 12:42 PM EST [facility] NRBC 0.0 <1.0 % LAB HEMETOLOGY METHOD 11/30/2024 12:42 PM EST [facility] NRBC Absolute 0.00 <0.10 K/mcL LAB HEMETOLOGY METHOD 11/30/2024 12:42 PM EST [facility] Blood Venous blood specimen / Unknown Venipuncture / Unknown 11/30/2024 8:36 AM EST 11/30/2024 11:04 AM EST us Neftaly Gutierres MD LAB BLOOD ORDERABLES Final Result Performing Organization Address [facility]/ZIP Co de Phone Number [facility] [address] [place] [address], [place] [phone] * (ABNORMAL) Hemoglobin A1c (11/30/2024 8:36 AM EST) Hemoglobin A1C 6.9(H) <6.5 % LAB CHEMISTRY METHOD 11/30/2024 8:30 PM EST [facility] Mean Bld Glu Estim. 151 mg/dL LAB CHEMISTRY METHOD 11/30/2024 8:30 PM EST [facility] Blood Venous blood specimen / Unknown Venipuncture / Unknown 11/30/2024 8:36 AM EST 11/30/2024 11:04 AM EST us Neftaly Gutierres MD LAB BLOOD ORDERABLES Final Result [facility] [address] [place] [address], [place] [phone] * (ABNORMAL) Basic metabolic panel (11/30/2024 8:36 AM EST) Sodium 139 133 - 145 mmol/L LAB CHEMISTRY METHOD 11/30/2024 1:20 PM EST [facility] Potassium 4.3 3.5 - 5.5 mmol/L LAB CHEMISTRY METHOD 11/30/2024 1:20 PM [facility] Chloride 106 96 - 110 mmol/L LAB CHEMISTRY METHOD 11/30/2024 1:20 PM [facility] CO2 28 21 - 32 mmol/L LAB CHEMISTRY METHOD 11/30/2024 1:20 PM [facility] Anion Gap 5 3 - 11 LAB CHEMISTRY METHOD 11/30/2024 1:20 PM [facility] Glucose 141(H) 70 - 100 mg/dL LAB CHEMISTRY METHOD 11/30/2024 1:20 PM [facility] BUN 30(H) 5 - 25 mg/dL LAB CHEMISTRY METHOD 11/30/2024 1:20 PM [facility] Creatinine 0.97 0.70 - 1.30 mg/dL LAB CHEMISTRY METHOD 11/30/2024 1:20 PM [facility] eGFR 85 >=60 mL/min/1. 73m2 LAB CHEMISTRY METHOD 11/30/2024 1:20 PM [facility] Comment:Calculation based on the??Chronic Kidney Disease Epidemiology Collaboration (CKD-EPI) equation refit??without adjustment for race. BUN/Creatinine Ratio 30.9 LAB CHEMISTRY METHOD 11/30/2024 1:20 PM [facility] Calcium 9.0 8.5 - 10.5 mg/dL LAB CHEMISTRY METHOD 11/30/2024 1:20 PM [facility] Blood Venous blood specimen / Unknown Venipuncture / Unknown 11/30/2024 8:36 AM EST 11/30/2024 11:04 AM EST us Neftaly Gutierres MD LAB BLOOD ORDERABLES Final Result [facility] [address] [place] [address], * (ABNORMAL) Lipid panel with reflex to direct LDL (09/28/2024 5:46 AM EST) Cholesterol 155 0 - 200 mg/dL LAB CHEMISTRY METHOD 09/28/2024 10:09 AM [facility] Triglycerides 284(H) 0 - 150 mg/dL LAB CHEMISTRY METHOD 09/28/2024 10:09 AM [facility] HDL 34(L) >=40 mg/dL LAB CHEMISTRY METHOD 09/28/2024 10:09 AM [facility] LDL Calculated 64 0 - 100 mg/dL LAB CHEMISTRY METHOD 09/28/2024 10:09 AM [facility] VLDL Cholesterol Matthew 56.8 mg/dL LAB CHEMISTRY METHOD 09/28/2024 10:09 AM [facility] Non HDL Chol. (LDL+VLDL) 121 <145 mg/dL LAB CHEMISTRY METHOD 09/28/2024 10:09 AM [facility] Chol/HDL Ratio 4.6(H) 0.0 - 4.4 LAB CHEMISTRY METHOD 09/28/2024 10:09 AM [facility] Blood Venous blood specimen / Unknown Venipuncture / Unknown 09/28/2024 5:46 AM EST 09/28/2024 8:49 AM EST Neftaly Gutierres MD LAB BLOOD ORDERABLES Final Result [facility] [address] [place] [address], from Last 3 Months or Most Recently Relevant to [place] [id number] MEDICARE MEDICAID - [place] Care Teams Repairer Typewriter Relationship Specialty Start Date End Date Neftaly Gutierres MD [address] [place] [address] PCP - General Internal Medicine 09/15/24
--- OUTSIDE RECORDS SUMMARY | 2025-01-17 13:45 | XMS_ITS | Encounter Summary ---
Author Organization [facility] Address [address] [place] [address] Care Team Providers Care College Tutor Name Role Phone Neftaly Gutierres MD Primary Care Provider +1- [phone] Encounter Details Date Type Department Care Team (Late st Contact Info) Description 09/28/2024 Lab Requisition [facility] - Main Lab [address] [facility] [place] [address] Neftaly Gutierres MD [address] [place] [address] Type 2 diabetes mellitus with unspecified complications (CMS/HCC V24, CMS/HCC V28); Hyperlipidemia, unspecified; Essential (primary) hypertension Social History Tobacco Use Types Packs/Day Years Used Date Smoking Tobacco: Never Assessed Sex and Gender Information Value Date Recorded Sex Assigned at Not on file Legal Sex Male 10:29 AM EST Gender Identity Not on file Sexual Orientation Not on file documented as of this encounter Plan of Treatment Not on file documented as of this encounter Procedures Procedure Name Priority Date/Time Associated Diagnosis Comments LIPID PANEL WITH REFLEX TO DIRECT LDL Routine 09/28/2024 5:46 AM EST Type 2 diabetes mellitus with unspecified complications (CMS/HCC) Hyperlipidemia, unspecified Essential (primary) hypertension HEMOGLOBIN A1C Routine 09/28/2024 5:46 AM EST Type 2 diabetes mellitus with unspecified complications (CMS/HCC) Hyperlipidemia, unspecified Essential (primary) hypertension COMPREHENSIVE METABOLIC PANEL Routine 09/28/2024 5:46 AM EST Type 2 diabetes mellitus with unspecified complications (CMS/HCC) Hyperlipidemia, unspecified Essential (primary) hypertension documented in this encounter Results * (ABNORMAL) Hemoglobin A1c (09/28/2024 5:46 AM EST) Hemoglobin A1C 7.1(H) <6.5 % LAB CHEMISTRY METHOD 09/28/2024 12:[address] [facility] Mean Bld Glu Estim. 157 mg/dL LAB CHEMISTRY METHOD 09/28/2024 12:[address] [facility] Blood Venous blood specimen / Unknown Venipuncture / Unknown 09/28/2024 5:46 AM EST 09/28/2024 8:49 AM EST us Neftaly Gutierres MD LAB BLOOD ORDERABLES Final Result [facility] [address] [place] [address], [place] [phone] * (ABNORMAL) Lipid panel with reflex to direct LDL (09/28/2024 5:46 AM EST) Pathologist [facility] Cholesterol 155 0 - 200 mg/dL LAB CHEMISTRY METHOD 09/28/2024 10:[address] [facility] Triglycerides 284(H) 0 - 150 mg/dL LAB CHEMISTRY METHOD 09/28/2024 10:[address] [facility] HDL 34(L) >=40 mg/dL LAB CHEMISTRY METHOD 09/28/2024 10:[address] [facility] LDL Calculated 64 0 - 100 mg/dL LAB CHEMISTRY METHOD 09/28/2024 10:[address] [facility] VLDL Cholesterol Matthew 56.8 mg/dL LAB CHEMISTRY METHOD 09/28/2024 10:[address] [facility] Non HDL Chol. (LDL+VLDL) 121 <145 mg/dL LAB CHEMISTRY METHOD 09/28/2024 10:[address] [facility] Chol/HDL Ratio 4.6(H) 0.0 - 4.4 LAB CHEMISTRY METHOD 09/28/2024 10:[address] [facility] Blood Venous blood specimen / Unknown Venipuncture / Unknown 09/28/2024 5:46 AM EST 09/28/2024 8:49 AM EST Neftaly Gutierres MD LAB BLOOD ORDERABLES Final Result [facility] [address] [place] [address], * (ABNORMAL) Comprehensive metabolic panel (09/28/2024 5:46 AM EST) Sodium 138 133 - 145 mmol/L LAB CHEMISTRY METHOD 09/28/2024 10:[address] [facility] Potassium 4.4 3.5 - 5.5 mmol/L LAB CHEMISTRY METHOD 09/28/2024 10:[address] [facility] Chloride 107 96 - 110 mmol/L LAB CHEMISTRY METHOD 09/28/2024 10:[address] [facility] CO2 25 21 - 32 mmol/L LAB CHEMISTRY METHOD 09/28/2024 10:[address] [facility] Anion Gap 6 3 - 11 LAB CHEMISTRY METHOD 09/28/2024 10:[address] [facility] Glucose 145(H) 70 - 100 mg/dL LAB CHEMISTRY METHOD 09/28/2024 10:[address] [facility] BUN 29(H) 5 - 25 mg/dL LAB CHEMISTRY METHOD 09/28/2024 10:[address] [facility] Creatinine 0.86 0.70 - 1.30 mg/dL LAB CHEMISTRY METHOD 09/28/2024 10:[address] [facility] eGFR 94 >=60 mL/min/1. 73m2 LAB CHEMISTRY METHOD 09/28/2024 10:[address] [facility] Comment:Calculation based on the??Chronic Kidney Disease Epidemiology Collaboration (CKD-EPI) equation refit??without adjustment for race. BUN/Creatinine Ratio 33.7 LAB CHEMISTRY METHOD 09/28/2024 10:[address] [facility] Calcium 9.1 8.5 - 10.5 mg/dL LAB CHEMISTRY METHOD 09/28/2024 10:[address] [facility] AST (SGOT) 23 10 - 42 unit/L LAB CHEMISTRY METHOD 09/28/2024 10:[address] [facility] ALT (SGPT) 23 10 - 60 unit/L LAB CHEMISTRY METHOD 09/28/2024 10:[address] [facility] Alkaline Phosphatase 78 42 - 121 unit/L LAB CHEMISTRY METHOD 09/28/2024 10:[address] [facility] Total Protein 7.8 6.0 - 8.0 g/dL LAB CHEMISTRY METHOD 09/28/2024 10:[address] [facility] Albumin 3.6 3.2 - 5.0 g/dL LAB CHEMISTRY METHOD 09/28/2024 10:[address] [facility] Total Bilirubin 0.3 0.0 - 1.4 mg/dL LAB CHEMISTRY METHOD 09/28/2024 10:[address] [facility] Blood Venous blood specimen / Unknown Venipuncture / Unknown 09/28/2024 5:46 AM EST 09/28/2024 8:49 AM EST Neftaly Gutierres MD LAB BLOOD ORDERABLES Final Result [facility] [address] [place] [address], documented in this encounter Visit Diagnoses Diagnosis Type 2 diabetes mellitus with unspecified complications (CMS/HCC V24, CMS/HCC V28) Hyperlipidemia, unspecified Essential (primary) hypertension Unspecified essential hypertension documented in this encounter Care Teams College Tutor Relationship Specialty Start Date End Date Neftaly Gutierres MD [address] [place] [id number] PCP - General Internal Medicine 09/15/24 documented as of this encounter
--- OUTSIDE RECORDS SUMMARY | 2025-01-17 13:45 | XMS_ITS | Encounter Summary ---
Author Organization [facility] Address [address] [place] [address] Care Team Providers Care Hand Laster Name Role Phone Neftaly Gutierres MD Primary Care Provider +1- [phone] Encounter Details Date Type Department Care Team (Late st Contact Info) Description 10/04/2024 Lab Requisition [facility] - Main Lab [address] [place] [address] Neftaly Gutierres MD [address] [place] [address] Vitamin D deficiency, unspecified; Type 2 diabetes mellitus without complications (CMS/HCC V24, CMS/HCC V28) Social History Tobacco Use Types Packs/Day Years [...] Procedure Name Priority Date/Time Associated Diagnosis Comments VITAMIN D 25 HYDROXY Routine 10/05/2024 7:54 AM EST Vitamin D deficiency, unspecified Type 2 diabetes mellitus without complications (CMS/HCC) HEMOGLOBIN A1C Routine 10/05/2024 7:54 AM EST Vitamin D deficiency, unspecified Type 2 diabetes mellitus without complications (CMS/[facility]) documented in this encounter Results * (ABNORMAL) Hemoglobin A1c (10/05/2024 7:54 AM EST) Hemoglobin A1C 7.1(H) <6.5 % LAB CHEMISTRY METHOD 10/05/2024 1:43 PM EST [facility] ([facility] Mean Bld Glu Estim. 157 mg/dL LAB CHEMISTRY METHOD 10/05/2024 1:43 PM EST [facility] Blood Venous blood specimen / Unknown Venipuncture / Unknown 10/05/2024 7:54 AM EST 10/05/2024 9:43 AM EST Neftaly Gutierres MD LAB BLOOD ORDERABLES Final Result Performing Organization Address City/[facility]/ZIP Co de Phone Number [facility] [address] [place] [address], [place] [phone] * (ABNORMAL) Vitamin D 25 hydroxy (10/05/2024 7:54 AM EST) Vit D, 25-Hydroxy 24.9(L) 30.0 - 80.0 ng/mL LAB CHEMISTRY METHOD 10/05/2024 10:36 AM EST [facility] Blood Venous blood specimen / Unknown Venipuncture / Unknown 10/05/2024 7:54 AM EST 10/05/2024 9:42 AM EST Neftaly Gutierers MD LAB BLOOD ORDERABLES Final Result Performing Organization Address [facility]/ZIP Co de Phone Number [facility] [address] [place] [address], [place] [phone] documented in this encounter Visit Diagnoses Diagnosis Vitamin D deficiency, unspecified Type 2 diabetes mellitus without complications (CMS/HCC V24, CMS/HCC V28) documented in this encounter Care Teams Hand Laster Relationship Specialty Start Date End Date Neftaly Gutierres MD [address] [place] [id number] PCP - General Internal Medicine 09/15/24 documented as of this encounter
--- OUTSIDE RECORDS SUMMARY | 2025-01-17 13:45 | XMS_ITS | Clinical Summary ---
Author Organization [employer] [facility] Address [address] [place] [address] Care Team Providers Care Woodworking Shop Laborer Name Role Phone Unavailable Primary Care Provider Unavailabl e Medications Abilify 10 MG tablet Abilify Take No date recorded No form recorded No frequency recorded No route recorded No set duration recorded No set duration amount recorded active No dosage strength recorded No dosage strength units of measure recorded Active ARIPiprazole (Abilify) 10 MG disintegrating tablet 06/11/20 24 Active ARIPiprazole (Abilify) 15 MG disintegrating tablet 05/12/20 24 Active aspirin 300 MG suppository aspirin Take No date recorded No form recorded No frequency recorded No route recorded No set duration recorded No set duration amount recorded active No dosage strength recorded No dosage strength units of measure recorded Active Flowflex COVID-19 Ag Home Test kit 02/25/20 24 Active Aspirin Low Dose 81 MG EC tablet 10/28/19 24 Active FLUoxetine (PROzac) 40 MG capsule fluoxetine Take No date recorded No form recorded No frequency recorded No route recorded No set duration recorded No set duration amount recorded active No dosage strength recorded No dosage strength units of measure recorded Active Melatonin 5 MG sublingual tablet melatonin Take No date recorded No form recorded No frequency recorded No route recorded No set duration recorded No set duration amount recorded active No dosage strength recorded No dosage strength units of measure recorded Active magnesium hydroxide (Milk of Magnesia) 400 MG/5ML suspension Take 30 mL by mouth at bed time. Active naloxone (Narcan) 4 mg/0.1 mL nasal spray 05/11/20 24 Active simvastatin (Zocor) 10 MG tablet simvastatin Take No date recorded No form recorded No frequency recorded No route recorded No set duration recorded No set duration amount recorded active No dosage strength recorded No dosage strength units of measure recorded Active Trihexyphenidyl HCl 0.4 MG/ML solution trihexyphenidyl Take No date recorded No form recorded No frequency recorded No route recorded No set duration recorded No set duration amount recorded active No dosage strength recorded No dosage strength units of measure recorded Active Social History Tobacco Use Types Packs/Day Years Used Date Smoking Tobacco: Never Assessed Sex and Gender Information Value Date Recorded Sex Assigned at Male 08/05/2022 10:37 AM EDT Legal Sex Male 10:37 AM EDT Gender Identity Male 08/05/2022 10:37 AM EDT Sexual Orientation Straight 08/05/2022 10 :37 AM EDT Last Filed Vital Signs Vital Sign Reading Time Taken Comments Blood Pressure 90/58 09/10/2021 12:12 AM EST Pulse - - Temperature - - Respiratory Rate - - Oxygen Saturation - - Inhaled Oxygen Concentration - - Weight - - Height - - Body Mass Index - - Plan of Treatment Health Maintenance Due Date Last Done Comments CT Colonography 1955 Colonoscopy 1955 Colorectal Cancer Screening 1955 Dental Prophylaxis 1955 Dental X-Ray: Bitewings 1955 Depression Screening 1955 FIT DNA/Cologuard 1955 FIT 1955 FOBT 1955 Lipid Panel 1955 SDOH Screening 1955 Sigmoidoscopy 1955 Alcohol/Substance Use Screening 1967 Tobacco Screening 1967 Hepatitis C Screening 1973 DTaP/Tdap/Td Vaccines (1 - Tdap) 1974 Pneumococcal Vaccine: 50+ Years (1 of 1 - PCV) 2005 Zoster Vaccines (1 of 2) 2005 Dental Oral Exam 07/08/2021 01/05/2021 Dental X-Ray: Full Mouth 01/07/2024 01/05/2021 COVID-19 Vaccine ( season) 2024 08/04/2023, 02/06/2022, 08/08/2021, Additional history exists Influenza Vaccine (#1) 2024 , 07/17/2022, 07/21/2021, Additional history exists RSV Patients and Patients Aged 60 years or older (1 - 1-dose 75+ series) 2030 HIB Vaccines Aged Out No longer eligi [...] patient's age to complete this topic Meningococcal Vaccine Aged Out No chandrakant claritza eligible based on patient's age to complete this topic RSV under 20 months Aged Out No longe r eligible based on patient's age to complete this topic Rotavirus Vaccines Aged Out No longer eligible based on patient's age to complete this topic Procedures Procedure Name Priority Date/Time Associated Diagnosis Comments PANORAMIC RADIOGRAPHIC IMAGE Routine 01/05/2021 12:00 AM EDT COMPREHENSIVE ORAL EVALUATION - NEW OR ESTABLISHED PATIENT Routine 01/05/2021 12:00 AM EDT from Last 3 Months or Most Recently Relevant to Health Maintenance Insurance [place]
--- OUTSIDE RECORDS SUMMARY | 2025-01-17 13:45 | XMS_ITS | Continuity of Care Document ---
Author Organization [facility] Address [address] [place] [address] Phone Care Team Providers Care Drawer Fitter Name Role Phone Babak COFFMAN [place] Unavailable Unavailable Allergies, Adverse Reactions, Alerts Substance [...] every day, by patient report - Active Cameron trihexyphenidyl 2 mg Tab take 1 tablet [...] Diagnoses Date Provider Providers Copied on Encounter [address], [id number], [place] tel:[phone] [facility] No Information 5 Babak Quezada. [address] [place] [address], [id number] , [place]. tel:[phone], [place], [place], [id number], [place] tel:[phone] [facility] No Information 2 Babak Quezada. [address] [place] [address], [id number] , [place]. tel: [phone] [facility], [address] [place] [address], [id number], [place] tel:[phone] [facility] No Information 2 Victorino Montaño. [address] [place] [address], [address], [place], [address]. tel: [phone] [facility], [address] [place] [address], [id number], tel:[phone] [facility] No Information 2 Babak Quezada. [address] [place] [address], [id number] , [place]. tel: [phone] OFFICE/OUTPA TIENT VISIT, [facility], [address] [place] [address], [id number], [place] tel:[phone] [facility] diabetes (chief complaint) Diabetes Mellitus Type 2, UncomplicatedInfl uenza VaccineHypertensi on, Unspecified 1 Babak Quezada. [address] [place] [address], [id number] , [place]. tel: [phone] Referring Provider: Damien Cook, [address] [place] [address], [id number] . tel:[phone] OFFICE/OUTPA TIENT VISIT, [facility], [address] [place] [address], [id number], [place] tel:[phone] [facility] hypertension (chief complaint) Diabetes Mellitus Type 2, UncomplicatedHype rtension, Unspecified 1 Babak Quezada. [address] [place] [address], [id number] , [place]. tel: [phone] OFFICE/OUTPA TIENT VISIT, [facility], [address] [place] [address], [id number], [place] tel:[phone] [facility] hypertension (chief complaint) Unspecified essential hypertension 201 0 Victorino Montaño. [address] [place] [address], [id number]. tel: [phone] PREV VISIT, [facility], AGE 40-64 [facility], [address] [place] [address], [id number], [place] tel:[phone] [facility] physical exam (chief complaint)hyp ertension (chief complaint)dep ression (chief complaint) Unspecified essential hypertensionRouti ne Medical Exam 0 Victorino Montaño. [address] [place] [address], [id number]. tel: [phone] OFFICE/OUTPA TIENT VISIT, [facility], [address] [place] [address], [id number], [place] tel:[phone] [facility] Toe infection (chief complaint) CellulitisCelluli tis -201 0 Chastity Moore. [address] [place] [address], [id number] . tel: [phone] OFFICE/OUTPA TIENT VISIT, [facility], [address] [place] [address], [id number], [place] tel:[phone] [facility] hypertension (chief complaint)med ication refill (chief complaint)angela betes (chief complaint) Unspecified essential hypertension Jan-0 201 0 Victorino Trejoa. [address] [place] [address], [address]. tel: [phone] OFFICE/OUTPA TIENT VISIT, [facility], [address] [place] [address], [id number], [place] tel:[phone] [facility] hypertension (chief complaint)med ication refill (chief complaint)angela betes (chief complaint) Unspecified essential hypertensionUnspe cified essential hypertension Dec-2 3-200 9 Victorino Montaño. [address] [place] [address], [address]. tel: [phone] OFFICE/OUTPA TIENT VISIT, [facility], [address] [place] [address], [id number], [place] tel:[phone] [facility] hypertension (chief complaint)med ication refill (chief complaint)angela betes (chief complaint) Unspecified essential hypertensionUnspe cified essential hypertension Jul-0 9200 9 Victorino Trejoa. [address] [place] [address], [address], [address]. tel: [phone] PREV VISIT, [facility], AGE 40-64 [facility], [address] [place] [address], [id number], [place] tel:[phone] [facility] physical exam (chief complaint)med ication refill (chief complaint) No Information Jun-2 9 Victorino Nyla Montaño. [address] [place] [address], [id number]. tel: [phone] OFFICE/OUTPA TIENT VISIT, [facility], [address] [place] [address], [id number], [place] tel:[phone] [facility] diabetes (chief complaint)hyp ertension (chief complaint)steven h (chief complaint)kimberly ght loss (chief complaint) Other specified dermatomycoses May-0 3200 9 Victorino Trejoa. [address] [place] [address], [id number]. tel: [phone] OFFICE/OUTPA TIENT VISIT, [facility], [address] [place] [address], [id number], [place] tel:[phone] [facility] hypertension (chief complaint)kimberly ght loss (chief complaint)smo leydi (chief complaint) Unspecified essential hypertensionUnspe cified essential hypertension 9 Victorino Trejoa. [address] [place] [address], [address]. tel: [phone] [facility], [address] [place] [address], [id number], [place] tel:[phone] [facility] Loss of weight May-1 8-200 9 Victorino Montaño. [address] [place] [address], [address]. tel:[phone] OFFICE/OUTPA TIENT VISIT, [facility], [address] [place] [address], [id number], [place] tel:[phone] [facility] hypertension (chief complaint)wt loss (chief complaint) Loss of weightLoss of weightUnspecified essential hypertension May-0 1-200 9 Victorino Montaño. [address] [place] [address], [address]. tel:[phone] OFFICE/OUTPA TIENT VISIT, [facility], [address] [place] [address], [id number], [place] tel:[phone] [facility] insomnia (chief complaint)angela rrhea (chief complaint) Insomnia, unspecifiedOther and unspecified noninfectious gastroenteritis and colitis Apr-2 0-200 9 Victorino Montaño. [address] [place] [address], [address]. tel: [phone] OFFICE/OUTPA TIENT VISIT, [facility], [address] [place] [address], [id number], [place] tel:[phone] [facility] weight loss (chief complaint)hyp ertension (chief complaint)tro uble sleeping (chief complaint) Loss of weightLoss of weightUnspecified essential hypertension Apr-0 3-200 9 Victorino Montaño. [address] [place] [address], [address]. tel: [phone] [facility], [address] [place] [address], [id number], [place] tel:[phone] [facility] Loss of weight Mar-0 4-200 9 Victorino Trejoa. [address] [place] [address], [address]. tel: [phone] OFFICE/OUTPA TIENT VISIT, [facility], [address] [place] [address], [id number], tel:[phone] [facility] hypertension (chief complaint)kimberly ght loss (chief complaint) Unspecified essential hypertensionUnspe cified essential hypertensionLoss of weight 9 Victorino Montaño. [address] [place] [address], [address]. tel: [phone] OFFICE/OUTPA TIENT VISIT, [facility], [address] [place] [address], [id number], tel:[phone] [facility] smoking cessation (chief complaint)med ication refill (chief complaint)hyp ertension (chief complaint) Personal history of tobacco usePersonal history of tobacco useUnspecified essential hypertensionDiabe humphrey mellitus without mention of complication, type II or unspecified type, uncontrolledPure hyperglyceridemia 8 Victorino Montaño. [address] [place] [address], [address]. tel: [phone] OFFICE/OUTPA TIENT VISIT, [facility], [address] [place] [address], [id number], [place] tel:[phone] [facility] hypertension (chief complaint)smo leydi cessation (chief complaint) Personal history of tobacco useUnspecified essential hypertensionPerso nal history of tobacco use 8 Victorino Montaño. [address] [place] [address], [address]. tel: [phone] OFFICE/OUTPA TIENT VISIT, [facility], [address] [place] [address], [id number], [place] tel:[phone] [facility] Smoking Cessation (chief complaint)Met er Assistance (chief complaint) Personal history of tobacco use 0 8 Victorino Montaño. [address] [place] [address], [address]. tel: [phone] [facility], [address] [place] [address], [id number], [place] tel:[phone] [facility] Diabetes mellitus without mention of complication, type II or unspecified type, uncontrolled Jun- 8 Niya Terrynea. [address] [place] [address], [address]. tel: [phone] [facility], [address] [place] [address], [id number], tel:[phone] [facility] Dietary surveillance and counseling 8 Niya Terrynea. [address] [place] [address], [address]. tel: [phone] PREV VISIT, NEW, AGE 40-64 [facility], [address] [place] [address], [id number], [place] tel:[phone] [facility] No Information 8 Victorino Montaño. [address] [place] [address], [address], [place], [address]. tel: [phone] [facility], [address] [place] [address], [id number], tel:[phone] [facility] Anxiety state, unspecifiedUnspec ified essential hypertensionSchiz oaffective disorder, unspecified 8 Victorino Montaño. [address] [place] [address], [address], [place], [address]. tel: [phone] Family History Family Member Type Diagnosis Age [...] Record Payers Payer name Insurance type Covered green party ID Endy whatley(s) Medicare [place] [id number] Social History Type Description Quantity Date Captured [...] Future Order: Lab Order MICROALB UMIN (RANDOM) ([id number]), Sent on: Sent Future Order: Lab Order PSA, TOT AL AND FREE ([id number]), Ordered on: Ordered Future Order: Lab Order COMPREHE NSIVE METABOLIC PANEL (977), Sent on: Sent Future Order: Lab Order GLYCOHEM OGLOBIN-A1C ([id number]), Sent on: Sent Future Order: Lab Order LIPID 1 PROFILE (CHOL,TRIG,HDL,LDL) (971), Sent on: Sent Future Order: Lab Order TSH, 3RD GENERATION ([id number]), Sent on: Sent Future Order: Lab Order Rapid HI V ([id number]), Appointment on: Ordered Future Order: Lab Order FOBT Angela gnostic ([id number]), Appointment on: Ordered Future Order: Lab Order [...] on: Ordered Future Order: Lab Order SEDRATE ([id number]), Appointment on: Ordered Future Order: Lab Order [...] Patient understood and made info rmed decision Continue current medication Reviewed medications Take new medication as prescribe d Continue current medication Continue current medication Continue current medication Continue current medication Take new medication as prescribe d Continue current medication Continue current medication Change medication Continue current medication Continue current medication Take new medication as prescribe d Assessments Type Assessment Date No Information Patient Care Teams Name Effective Dates (start - stop) Status Members No Information
--- OUTSIDE RECORDS SUMMARY | 2025-01-17 13:45 | XMS_ITS | Encounter Summary ---
Author Organization [facility] Address [address] [place] [address] Care Team Providers Care Solar Photovoltaic Electrician Name Role Phone Neftaly Gutierres MD Primary Care Provider [phone] Encounter Details Date Type Department Care Team (Late st Contact Info) Description 09/14/2024 Lab Requisition [facility] - Main Lab [address] [place] [address] Neftaly Gutierres MD [address] [place] [address] Angina pectoris, unspecified (CMS/HCC V24); Type 2 diabetes mellitus without complications (CMS/HCC [...] Procedure Name Priority Date/Time Associated Diagnosis Comments COMPLETE BLOOD COUNT Routine 09/14/2024 6:48 AM EST Angina pectoris, unspecified (CMS/HCC) Type 2 diabetes mellitus without complications (CMS/HCC) HEMOGLOBIN A1C Routine 09/14/2024 6:48 AM EST Angina pectoris, unspecified (CMS/HCC) Type 2 diabetes mellitus without complications (CMS/HCC) documented in this encounter Results * (ABNORMAL) Hemoglobin A1c (09/14/2024 6:48 AM EST) Hemoglobin A1C 7.0(H) <6.5 % LAB CHEMISTRY METHOD 09/14/2024 12:33 PM EST [facility] Mean Bld Glu Estim. 154 mg/dL LAB CHEMISTRY METHOD 09/14/2024 12:33 PM [facility] Blood Venous blood specimen / Unknown Venipuncture / Unknown 09/14/2024 6:48 AM EST 09/14/2024 9:49 AM EST Neftaly Gutierres MD LAB BLOOD ORDERABLES Final Result [facility] [address] [place] [address], * Complete blood count (09/14/2024 6:48 AM EST) WBC 6.9 4.8 - 10.8 K/mcL LAB HEMETOLOGY METHOD 09/14/2024 10:44 AM [facility] RBC 4.80 4.50 - 5.50 [facility] LAB HEMETOLOGY METHOD 09/14/2024 10:44 AM [facility] Hemoglobin 14.3 13.5 - 17.5 g/dL LAB HEMETOLOGY METHOD 09/14/2024 10:44 AM [facility] Hematocrit 43.1 42.0 - 54.0 % LAB HEMETOLOGY METHOD 09/14/2024 10:44 AM [facility] MCV 90.2 79.0 - 98.0 FL LAB HEMETOLOGY METHOD 09/14/2024 10:44 AM [facility] MCH 29.9 27.0 - 32.0 pcg LAB HEMETOLOGY METHOD 09/14/2024 10:44 AM [facility] MCHC 33.2 32.0 - 37.0 g/dL LAB HEMETOLOGY METHOD 09/14/2024 10:44 AM [facility] RDW 13.7 11.0 - 15.0 % LAB HEMETOLOGY METHOD 09/14/2024 10:44 AM EST [facility] Platelets 256 130 - 400 K/mcL LAB HEMETOLOGY METHOD 09/14/2024 10:44 AM EST [facility] MPV 8.8 7.0 - 11.0 FL LAB HEMETOLOGY METHOD 09/14/2024 10:44 AM EST [facility] NRBC 0.0 <1.0 % LAB HEMETOLOGY METHOD 09/14/2024 10:44 AM EST [facility] NRBC Absolute 0.00 <0.10 K/mcL LAB HEMETOLOGY METHOD 09/14/2024 10:44 AM [facility] Blood Venous blood specimen / Unknown Venipuncture / Unknown 09/14/2024 6:48 AM EST 09/14/2024 9:49 AM EST Neftaly Gutierres MD LAB BLOOD ORDERABLES Final Result [facility] [address] [place] [address], documented in this encounter Visit Diagnoses Diagnosis Angina pectoris, unspecified (CMS/HCC V24) Type 2 diabetes mellitus without complications (CMS/HCC V24, CMS/HCC V28) documented in this encounter Care Teams Solar Photovoltaic Electrician Relationship Specialty Start Date End Date Neftaly Gutierres MD [address] [place] [id number] PCP - General Internal Medicine 09/15/24 documented as of this encounter
--- OUTSIDE RECORDS SUMMARY | 2025-01-17 13:45 | XMS_ITS | Encounter Summary ---
Author Organization [facility] Address [address] [place] [address] Care Team Providers Care Oracle Hyperion Consultant Name Role Phone Neftaly Gutierres MD Primary Care Provider [phone]- [phone] Encounter Details Date Type Department Care Team (Late st Contact Info) Description 11/30/2024 Lab Requisition [facility] - Main Lab [address] [facility] [place] [address] Neftaly Gutierres MD [address] [place] [address] Type 2 diabetes mellitus without complications (CMS/HCC V24, CMS/HCC V28); Polyneuropathy, unspecified; Chronic obstructive pulmonary disease, unspecified (CMS/HCC V24, CMS/HCC V28) Social History Tobacco [...] Associated Diagnosis Comments COMPLETE BLOOD COUNT Routine 11/30/2024 8:36 AM EST Type 2 diabetes mellitus without complications (CMS/HCC) Polyneuropathy, unspecified Chronic obstructive pulmonary disease, unspecified (CMS/HCC) HEMOGLOBIN A1C Routine 11/30/2024 8:36 AM EST Type 2 diabetes mellitus without complications (CMS/HCC) Polyneuropathy, unspecified Chronic obstructive pulmonary disease, unspecified (CMS/HCC) BASIC METABOLIC PANEL Routine 11/30/2024 8:36 AM EST Type 2 diabetes mellitus without complications (CMS/HCC) Polyneuropathy, unspecified Chronic obstructive pulmonary disease, unspecified (CMS/HCC) documented in this encounter Results * (ABNORMAL) Hemoglobin A1c (11/30/2024 8:36 AM EST) Hemoglobin A1C 6.9(H) <6.5 % LAB CHEMISTRY METHOD 11/30/2024 8:30 PM EST [facility] Mean Bld Glu Estim. 151 mg/dL LAB CHEMISTRY METHOD 11/30/2024 8:30 PM [facility] Blood Venous blood specimen / Unknown Venipuncture / Unknown 11/30/2024 8:36 AM EST 11/30/2024 11:04 AM EST Neftaly Gutierres MD LAB BLOOD ORDERABLES Final Result [facility] [address] [place] [address], * (ABNORMAL) Basic metabolic panel (11/30/2024 8:36 AM EST) [facility] Sodium 139 133 - 145 mmol/L LAB CHEMISTRY METHOD 11/30/2024 1:20 PM [facility] Potassium 4.3 3.5 - 5.5 mmol/L LAB CHEMISTRY METHOD 11/30/2024 1:20 PM [facility] Chloride 106 96 - 110 mmol/L LAB CHEMISTRY METHOD 11/30/2024 1:20 PM [facility] CO2 28 21 - 32 mmol/L LAB CHEMISTRY METHOD 11/30/2024 1:20 PM [facility] Anion Gap 5 3 - 11 LAB CHEMISTRY METHOD 11/30/2024 1:20 PM [facility] Glucose 141(H) 70 - 100 mg/dL LAB CHEMISTRY METHOD 11/30/2024 1:20 PM [facility] BUN 30(H) 5 - 25 mg/dL LAB CHEMISTRY METHOD 11/30/2024 1:20 PM [facility] Creatinine 0.97 0.70 - 1.30 mg/dL LAB CHEMISTRY METHOD 11/30/2024 1:20 PM [facility] eGFR 85 >=60 mL/min/1. 73m2 LAB CHEMISTRY METHOD 11/30/2024 1:20 PM [facility] Comment:Calculation based on the??Chronic Kidney Disease Epidemiology Collaboration (CKD-EPI) equation refit??without adjustment for race. BUN/Creatinine Ratio 30.9 LAB CHEMISTRY METHOD 11/30/2024 1:20 PM [facility] Calcium 9.0 8.5 - 10.5 mg/dL LAB CHEMISTRY METHOD 11/30/2024 1:20 PM [facility] Blood Venous blood specimen / Unknown Venipuncture / Unknown 11/30/2024 8:36 AM EST 11/30/2024 11:04 AM EST Neftaly Gutierres MD LAB BLOOD ORDERABLES Final Result [facility] [address] [place] [address], * (ABNORMAL) Complete blood count (11/30/2024 8:36 AM EST) WBC 5.6 4.8 - 10.8 K/mcL LAB HEMETOLOGY METHOD 11/30/2024 12:42 PM [facility] RBC 4.80 4.50 - 5.50 M/mcL LAB HEMETOLOGY METHOD 11/30/2024 12:42 PM [facility] Hemoglobin 14.5 13.5 - 17.5 g/dL LAB HEMETOLOGY METHOD 11/30/2024 12:42 PM [facility] Hematocrit 45.7 42.0 - 54.0 % LAB HEMETOLOGY METHOD 11/30/2024 12:42 PM [facility] MCV 95.0 79.0 - 98.0 FL LAB HEMETOLOGY METHOD 11/30/2024 12:42 PM [facility] MCH 30.1 27.0 - 32.0 pcg LAB HEMETOLOGY METHOD 11/30/2024 12:42 PM [facility] MCHC 31.7(L) 32.0 - 37.0 g/dL LAB HEMETOLOGY METHOD 11/30/2024 12:42 PM [facility] RDW 14.2 11.0 - 15.0 % LAB HEMETOLOGY METHOD 11/30/2024 12:42 PM [facility] Platelets 248 130 - 400 K/mcL LAB HEMETOLOGY METHOD 11/30/2024 12:42 PM [facility] MPV 8.9 7.0 - 11.0 FL LAB HEMETOLOGY METHOD 11/30/2024 12:42 PM [facility] NRBC 0.0 <1.0 % LAB HEMETOLOGY METHOD 11/30/2024 12:42 PM [facility] NRBC Absolute 0.00 <0.10 K/mcL LAB HEMETOLOGY METHOD 11/30/2024 12:42 PM [facility] Blood Venous blood specimen / Unknown Venipuncture / Unknown 11/30/2024 8:36 AM EST 11/30/2024 11:04 AM EST us Neftaly Gutierres MD LAB BLOOD ORDERABLES Final Result [facility] [address] [place] [address], documented in this encounter Visit Diagnoses Diagnosis Type 2 diabetes mellitus without complications (CMS/HCC V24, CMS/HCC V28) Polyneuropathy, unspecified Chronic obstructive pulmonary disease, unspecified (CMS/HCC V24, CMS/HCC V28) documented in this encounter Care Teams Oracle Hyperion Consultant Relationship Specialty Start Date End Date Neftaly Gutierres MD [address] [place] [address] PCP - General Internal Medicine 09/15/24 documented as of this encounter
== END 2025-01-17 12:03 | disposition home or self-care (01) ==
LOC: HO.HCS 11:43
PROVIDERS: PCP Nurse Practitioner Adult Health; Visit Provider Internal Medicine Cardiovascular Disease
DX: Z71.6 Tobacco abuse counseling (principal); I25.10 Atherosclerotic heart disease of native coronary artery without angina pectoris; R06.09 Other forms of dyspnea
CPT/HCPCS: 99214

== ENCOUNTER → 2025-01-17 11:43 | Outpatient (BNVA) | payer MEDICARE, MEDICAID, SELFPAY | PROVIDERS: PCP Nurse Practitioner Adult Health; Visit Provider Internal Medicine Cardiovascular Disease | DX: Z71.6 Tobacco abuse counseling (principal); I25.10 Atherosclerotic heart disease of native coronary artery without angina pectoris; R06.09 Other forms of dyspnea | CPT/HCPCS: 99212 ==

== ENCOUNTER 2025-08-03 09:10 | Outpatient (AMB) | payer MEDICARE, MEDICAID, SELFPAY ==
--- NOTE | 2025-08-03 09:18 | A.OFFVIS_ITS ---
Vital Signs 08/03/25 09:19 Height 5 ft 8 in Weight 180 lb 5.41 oz BMI 27.4 BP 130/64 Blood Pressure Location Lt brachial Position Sitting Pulse 75 Pulse Source Monitor Intake Visit Reasons: 4 month f/up r/s 05-09-25 Intake Note: 4 mth f/up Creeler Required: No Accompanied by: Self / Same As Patient Allergies No Known Allergies (No Known Allergies*) Allergy (Verified 01/17/25 11:47) Medication List - Last Reconciled 08/03/25 by Lucas Amaya MD acetaminophen 325 mg PO QID PRN aripiprazole 10 mg PO DAILY aspirin 81 mg PO DAILY atorvastatin 40 mg PO BEDTIME cholecalciferol (vitamin D3) 50 mcg PO DAILY fluoxetine 20 mg PO DAILY gabapentin 100 mg PO DAILY loperamide (Anti-Diarrheal (loperamide)) 2 mg PO Q6H PRN melatonin 5 mg PO BEDTIME nicotine 1 patch transdermal DAILY nitroglycerin 0.4 mg sublingual Q5M PRN polyethylene glycol 3350 4 grams PO DAILY trihexyphenidyl 2 mg PO BID HPI Comments Details: 70-year-old gentleman with bipolar disorder and autism who is presenting for assessment of chest discomfort. He has been experiencing chest tightness for long time. Off and on he gets chest discomfort at rest and with activities. He is describing a tightness in his chest. He is a smoker and smokes approximately half pack per day. He is saying he has known history of COPD. He has hyperlipidemia and pre diabetes. He is taking simvastatin 10 mg daily. ECG recently done was normal. He is saying he can exercise on treadmill. He did not have any stress testing in the past in our system. 09/10/2023: He returns for follow-up. He was referred for lipid panel and an exercise stress test on last visit. He did not do the lipid panel. He went for exercise stress test where he was able to exercise for 4 minutes and stopped because of dyspnea and fatigue. He did not getting chest discomfort. He was changed to Lexiscan which did not show any perfusion defect. He returns and is complaining of dyspnea on exertion. He is saying that he is still getting some off and on chest tightness which is random. He is asking about smoking cessation and potential options. He has bipolar disorder and is managed by psychiatrist. 01/05/24: He returns for follow-up. He was referred for coronary CTA where 50% lad and 50% RCA stenosis was noted. CTA FFR was performed which was normal. He returns for follow-up and has no symptoms. His heart rate is little slow on follow-up at 44 beats per minute. EKGs not showing any heart block or any other concerning features. He is taking metoprolol 25 mg twice a day. Blood pressure is well controlled. 09/22/2024: On follow-up today, he is denying chest discomfort. He has some shortness of breath with extreme exercise but otherwise in day-to-day life he does not have any significant shortness of breath. He is taking medications regularly. He unfortunately has started smoking again and is quite upset about it. 01/17/25: Here for follow-up. Continues to smoke 10 cigarettes per day. He has some shortness of breath with activities but saying that overall clinically stable and not bothersome. No chest discomfort. Blood pressure control is good. He is taking simvastatin 10 mg daily. He has not had any issues with other statins before. 08/03/2025: Here for follow-up. Continues to smoke. He is saying his breathing is stable. He is saying occasionally he gets pressure-like feeling in in his chest when he is resting. When he is walking or doing activities he does not get any chest discomfort. Blood pressure well controlled. Overall stable. [facility] Medical History Borderline diabetes HTN (hypertension) COPD (chronic obstructive pulmonary disease) Surgical History No pertinent past surgical history Family History Mother Glaucoma Father Alzheimer's dementia Maternal Grandfather Heart disease Social History Alcohol intake: never Patient Tobacco Use Status: Current everyday Tobacco user Cigarette Packs Per Day: 0.5 Cigarettes Per Day: 10 Years Smoked: 50 +/- Current occupational status: unemployed Current occupation: left handed Review of Systems Const Denies chills, Denies fatigue, Denies fever(s), Denies frequent falls, Denies weakness, Denies weight gain and Denies weight loss ENT Denies dizziness Card Denies chest pain, Denies leg edema, Denies lightheadedness, Denies palpitations, Denies dyspnea and Denies dyspnea on exertion Resp Denies cough, Denies dyspnea and Denies dyspnea on exertion GI Denies hematochezia Musc Denies abnormal gait, Denies muscle weakness, Denies numbness, Denies radiating pain into limb and Denies tingling Neuro Denies abnormal gait, Denies dizziness, Denies frequent falls, Denies numbness, Denies tingling and Denies weakness Endo Denies fatigue and Denies palpitations Physical Exam Vital Signs: Last Vital Signs Pulse 75 08/03/25 09:19 BP 130/64 08/03/25 09:19 BMI result Body Mass Index 27.4 GENERAL APPEARANCE: in no acute distress, pleasant. NECK: no carotid bruit, no jugular venous distention. SKIN: no suspicious lesions, warm and dry. HEART: no murmurs, regular rate and rhythm. LUNGS: Clear to auscultation bilaterally. ABDOMEN: soft, nontender. EXTREMITIES: no edema. PERIPHERAL PULSES: equal. NEUROLOGIC: No gross deficits, AAO X 3 Office Procedures EKG Details: Sinus rhythm 75 beats per minute, right axis deviation, can not rule out inferior infarct, QTC 422 milliseconds. [id number], Complete Assessment & Plan Assessment & Plan (1) Coronary artery disease: Code(s): I25.10 - Atherosclerotic heart disease of [place] coronary artery without angina pectoris Category: Medical (2) Dyspnea on exertion: Code(s): R06.09 - Other forms of dyspnea Category: Medical Plan 70-year-old gentleman who is here for follow-up. He was seen for dyspnea on exertion and underwent stress testing which was equivocal. He was referred for coronary CTA which showed 50% lad and 50% RCA stenosis. CTA FFR was performed which was normal. He has dyspnea with activities but it appears to be stable. He continues to smoke. We once again discussed about smoking cessation. Blood pressure well controlled. Occasional chest discomfort while resting but does not get any symptoms with activities consistently. Currently opted for medical treatment and close monitoring. We will see him back in 4 months. If he has change in symptoms he will reach out to us. Thank you for allowing me to participate in the care of your patient. Please feel free to contact me if you have any questions. Coding Level of Care Code Est Pt Level 4 (07200) Diagnoses Coronary artery disease I25.10 Dyspnea on exertion R06.09 CPT Codes EKG - CPT: 49769-[id number], Complete ([id number])
[2025-08-03 09:19] VITALS: BP 130/64; PULSE 75; BMI 27.4
--- OUTSIDE RECORDS SUMMARY | 2025-08-03 10:28 | XMS_ITS | Clinical Summary ---
Author Organization [employer] Address [address] [facility] [facility] [address] [place] [address] Care Team Providers Care Service Order Taker Name Role Phone Unavailable Primary Care Provider [...] Mouth 01/07/2024 01/05/2021 COVID-19 Vaccine ( season) 2025 08/04/2023, 02/06/2022, 08/08/2021, Additional history exists Influenza Vaccine (#1) 2025 , 07/17/2022, 07/21/2021, Additional history exists RSV [...] Most Recently Relevant to Health Maintenance Insurance DENTAL-[facility] MEDICAID STAND ADULT D[facility]AL-[facility] MEDICAID STAND ADULT
== END 2025-08-03 09:38 | disposition home or self-care (01) ==
LOC: HO.HCS 09:11
PROVIDERS: PCP Nurse Practitioner Adult Health; Visit Provider Internal Medicine Cardiovascular Disease
DX: I25.10 Atherosclerotic heart disease of native coronary artery without angina pectoris (principal); R06.09 Other forms of dyspnea
CPT/HCPCS: 93010; 99214

== ENCOUNTER → 2025-08-03 09:10 | Outpatient (BNVA) | payer MEDICARE, MEDICAID, SELFPAY | PROVIDERS: PCP Nurse Practitioner Adult Health; Visit Provider Internal Medicine Cardiovascular Disease | DX: I25.10 Atherosclerotic heart disease of native coronary artery without angina pectoris (principal); R06.09 Other forms of dyspnea; R94.31 Abnormal electrocardiogram [ECG] [EKG] | CPT/HCPCS: 93005; 99212 ==